=== PATIENT | female | born 1960 | race Asian ===

== ENCOUNTER 2018-10-18 08:07 | Day surgery (SDC) | payer BC, MEDICAID ==
[~2018-10-18] VITALS: Ht 162.6 cm; Wt 58.7 kg
[2018-10-18] VITALS (12 sets, daily range): BP systolic 94–101; BP diastolic 51–60; PULSE 80–87; RESP 13–18; Ht 162.6 cm; Wt 58.7 kg
--- NOTE | 2018-10-18 09:27 | HPN ---
Date/Time of Note Date/Time of Note DATE: 10/18/18 TIME: 09:27 Interval H&P Admission Note Pt. seen H&P reviewed: No system changes JARROD JOHNSON MD Oct 18, 2018 09:27
[2018-10-18] MEDS ORDERED: SOD CHLORIDE 0.9% 1,000 ML IV SCH (09:30)
[2018-10-18] MEDS ORDERED: POLYMYXIN/BACITRACIN 1L IRRIG IRR ONE (09:30)
[2018-10-18] MEDS ORDERED: CEFAZOLIN 1 GM/50 ML (PMX) 50 ML IVPB ONE (10:00)
[2018-10-18] MEDS ORDERED: MIDAZOLAM 1 MG/ML 2 ML INJ ONE (10:04)
[2018-10-18] MEDS ORDERED: LIDOCAINE 1%/EPI (1:100,000) (MDV) 20 ML ONE (10:04)
[2018-10-18] MEDS ORDERED: CEFAZOLIN 1 GM/50 ML (PMX) 0 ML IVPB ONE (10:04)
[2018-10-18] MEDS ORDERED: HEPARIN 1000 UNITS/ML 10 ML INJ ONE (10:04)
[2018-10-18] MEDS ORDERED: FENTAnyl 50 MCG/ML VIAL ONE (10:06)
--- NOTE | 2018-10-18 11:27 | RADRPT ---
Echocardiogram Report Patient Name: CLAUDIA FONSECAPatient ID: [id number] : 1960 (58y 4m)Study Date: 10/18/2018 9:12:26 AM Gender: FAccession #: [id number] Tech: [place] Location: Ref.Physician: LOPEZ KRAUSE Height(Cm): BSA: Weight(Kg): Quality: AdequateAccount #: Procedures: Echocardiographic Report: Transthoracic echocardiogram with complete 2D, M-Mode, and doppler examination. Indications: Evaluate Left Ventricular function. Measurements: 2D/M Mode Doppler Measurement Value Normal Range Measurement Value Normal Range LVIDd 2D 3.7 [ 3.8 - 5.2 ] cm AV Peak Vadim 1.5 [ 100.0 - 170.0 ] cm/sec LVIDs 2D 2.3 [ 2.2 - 3.5 ] cm AV Peak PG 9.0 [ 2.0 - 9.0 ] mmHg LVPWd 2D 0.9 [ 0.6 - 0.9 ] cm LVOT Peak Vadim 1.1 [ 70.0 - 110.0 ] cm/sec IVSd 2D 0.9 [ 0.6 - 0.9 ] cm LVOT Peak PG 5.0 [ 2.0 - 6.0 ] mmHg IVS/LVPW 2D 1.0 ratio MV E Peak Vadim 0.7 [ 60.0 - 130.0 ] cm/sec AoR Diam 2D 2.8 [ 2.3 - 3.1 ] cm MV A Peak Vadim 0.6 [ 100.0 - 120.0 ] cm/sec LA/Ao 2D 1 ratio MV E/A 1.2 [ 0.8 - 1.5 ] ratio LA Dimen 2D 2.4 [ 2.7 - 3.8 ] cm MV Decel Time 151 [ 104 - 258 ] msec Lat E` Vadim 0.1 [ 10.0 - 15.0 ] cm/sec MV E/A 1.2 [ 0.8 - 1.5 ] ratio Findings: Left Ventricle: Normal left ventricular systolic function. Normal left ventricular cavity size. Normal left ventricular wall thickness. Ejection fraction is visually estimated at 65 %. Tissue Doppler/Mitral Doppler indices are within normal limits. E/E'= 6. Normal left ventricular chamber size, wall thickness, and contractility, ejection fraction normal at 60-65%. No evidence of diastolic dysfunction with normal left atrial pressure on Doppler imaging. Right Ventricle: Normal right ventricular size. Normal right ventricular systolic function. Left Atrium: The left atrium is normal in size. Right Atrium: The right atrium is normal in size. Mitral Valve: Normal appearance and function of the mitral valve with trace physiologic regurgitation. Aortic Valve: Normal appearance of the aortic valve. No significant aortic stenosis or insufficiency. Normal trileaflet aortic valve structure. Trace to mild aortic valve regurgitation. Poorly visualized probably trileaflet aortic valve with mild aortic regurgitation by color Doppler but no significant stenosis. Tricuspid Valve: Normal appearance of the tricuspid valve. Unable to obtain RVSP due to minimal presence of tricuspid regurgitation. Pulmonic Valve: Normal pulmonic valve appearance. Pericardium: Normal pericardium with no significant pericardial effusion. Aorta: Normal aortic root. IVC: Normal size and normal respiratory collapse consistent with normal right atrial pressure. Conclusions: Normal left ventricular systolic function. Normal left ventricular cavity size. Normal left ventricular wall thickness. Ejection fraction is visually estimated at 65 %. Tissue Doppler/Mitral Doppler indices are within normal limits. E/E'= 6. Normal left ventricular chamber size, wall thickness, and contractility, ejection fraction normal at 60-65%. No evidence of diastolic dysfunction with normal left atrial pressure on Doppler imaging. The left atrium is normal in size. Normal appearance and function of the mitral valve with trace physiologic regurgitation. Normal appearance of the aortic valve. Trace to mild aortic valve regurgitation. Poorly visualized probably trileaflet aortic valve with mild aortic regurgitation by color Doppler but no significant stenosis. s. Normal appearance of the tricuspid valve. Unable to obtain RVSP due to minimal presence of tricuspid regurgitation. Normal pericardium with no significant pericardial effusion. Normal size and normal respiratory collapse consistent with normal right atrial pressure. No Vegetation, masses, or thrombi seen. Electronically Signed By: Marlo Casarez 2018-10-18 11:26:07 PST
--- NOTE | 2018-10-18 11:32 | NUR ---
0830H: Received patient, German speaking only, with son at bedside. patient scheduled for Portacath device placement by Dr. Suzanna Michele. Noted patient to have mouthsores w/ her lips swollen. Son verbalized to speak with their oncologist. 0930H: Spoke w/ METAL INSPECTOR Clinton Ferreira, from Dr. English's office and son was able to speak with him. 1020H: brought down to Interventional Radiology for portacath insertion.
[2018-10-18] MEDS ORDERED: HYDROCODONE/APAP (5/325) TAB PO PRN (12:00)
--- NOTE | 2018-10-18 13:22 | NUR ---
PACU TRANSFERRED TO [facility] IN [facility]ABLE [place]. SP RT CHEST PORT A CATH INSERTION. DSG DRY/INTACT. PAIN 0/10. REPORT GIVEN TO CARLOS WILLINGHAM. Addendum: 10/18/18 at 1331 by ROSEY NEAL RN Amended: Links added.
--- NOTE | 2018-10-18 17:14 | NUR ---
RE:DISCHARGE PATIENT DISCHARGED HOME. ALL DISCHARGE INSTRUCTIONS EXPLAINED AND PROVIDED TO PATIENT AND FAMILY. IV REMOVED SURGICAL SITE CLEAN AND DRY WITHOUT ANY BLEEDING NOTED ON THE SITE. SURGICAL SITE CLEAN AND DRY WITHOUT ANY COMPLICATIONS. PATIENT VERBALIZED READINESS FOR DISCHARGE AND UNDERSTANDING OF INSTRUCTIONS PROVIDED. STABLE TO LEAVE THE HOSPITAL.
== END 2018-10-18 14:03 | disposition home or self-care (01) ==
LOC: SDS 08:07
PROVIDERS: ATTEND Internal Medicine Hematology & Oncology
DX: C50.912 Malignant neoplasm of unspecified site of left female breast (principal)
CPT/HCPCS: 36561; 76942; 93005; 93306; C1788; J0690; J1644; J2250; J3010

== ENCOUNTER 2019-02-20 12:59 | Inpatient (IN) | payer BC ==
[~2019-02-20] VITALS: Ht 160 cm; Wt 56.6 kg
[2019-02-20 14:38] VITALS: BP 94/57; PULSE 65; RESP 19
[2019-02-20] MEDS ORDERED: POLYMYXIN/BACITRACIN 1L IRRIG ONE (15:49)
[2019-02-20] MEDS ORDERED: IODIXANOL LOCM 50 ML BTL ONE (16:15)
[2019-02-20] MEDS ORDERED: LIDOCAINE 1% (MDV) 20 ML INJ ONE (16:15)
[2019-02-20 17:38] VITALS: Ht 160 cm; Wt 56.6 kg
[2019-02-20] MEDS: CEFAZOLIN 1 GM/50 ML (PMX) 50 ML IVPB SCH ×2 (17:40→21:28)
[2019-02-20] MEDS: SOD CHLORIDE 0.9% 1,000 ML IV SCH (17:41)
[2019-02-20 17:47] VITALS: BP 111/57; PULSE 68; RESP 18
[2019-02-20 19:20] VITALS: BP 99/56; PULSE 60; RESP 18
[2019-02-20] MEDS ORDERED: ACETAMINOPHEN 325 MG TAB PO PRN (20:00)
[2019-02-20] MEDS: HYDROCODONE/APAP (5/325) TAB PO PRN (20:12)
--- NOTE | 2019-02-20 20:51 | HP ---
Date/Time of Note Date/Time of Note DATE: 02/20/19 TIME: 20:40 Assessment/Plan VTE Prophylaxis SCD applied (from Nsg): Yes Pharmacological prophylaxis: NA/contraindicated Pharm contraindication: surgical contra Lines/Catheters IV Catheter Type (from Nrsg): Saline Lock Assessment/Plan Assessment/Plan -Permacath exposure, status post removal by interventional radiology. Continue Tylenol and [place] PRN for pain Zofran as needed for nausea. Continue IV fluids and postoperative antibiotic. -Locally advanced left breast cancer. Status post chemotherapy. Dr. Jack is following in general surgery consultation. Further recommendations based on clinical course. Plan of care discussed with Dr. Jovel. Result Diagram: 02/20/19 1508 02/20/19 1508 Results 24hrs Laboratory Tests Test 02/20/19 15:08 White Blood Count 1.4 L Red Blood Count 3.37 L Hemoglobin 10.1 L Hematocrit 31.1 L Mean Corpuscular Volume 92.3 Mean Corpuscular Hemoglobin 30.0 Mean Corpuscular Hemoglobin Concent 32.5 Red Cell Distribution Width 14.2 Platelet Count 147 Mean Platelet Volume 8.7 Immature Granulocytes % 0.700 H Neutrophils % Segmented Neutrophils % (Manual) 43 Band Neutrophils % (Manual) 2 Lymphocytes % Lymphocytes % (Manual) 44 Monocytes % Monocytes % (Manual) 9 Eosinophils % Eosinophils % (Manual) 2 Basophils % Nucleated Red Blood Cells % 1 H Immature Granulocytes # 0.010 Neutrophils # Neutrophils # (Manual) 0.6 L Band Neutrophils # 0.0 Lymphocytes (Manual) 0.6 L Lymphocytes # Monocytes # Monocytes # (Manual) 0.1 L Eosinophils # Basophils # Nucleated Red Blood Cells # Platelet Estimate NORMAL Giant Platelets 1 H Polychromasia 1+ Anisocytosis 1+ Macrocytosis 1+ Prothrombin Time 12.5 Prothrombin Time Ratio 1.0 INR International Normalized Ratio 0.92 Sodium Level 143 Potassium Level 4.0 Chloride Level 108 Carbon Dioxide Level 29 Anion Gap 6 Blood Urea Nitrogen 8 Creatinine 0.34 L Est Glomerular Filtrat Rate mL/min > 60 Glucose Level 80 Calcium Level 8.9 HPI/ROS Admit Date/Time Admit Date/Time Feb 20, 2019 at 13:13 Hx of Present Illness The patient is a 58-year-old Armenian female who was diagnosed with locally advanced left breast cancer in August 2018. Patient underwent permacath pl acement on the right side in October 2018. Patient underwent chemotherapy with good response. Patient was following with Dr. Dempsey in oncology consultation. Patient was seen in Dr. Pleitez's office and noted permacath exposure above skin surface. Patient was brought to the hospital today and underwent removal of right chest permacath by radiology. Patient is seen is seen in medical surgical floor. Patient is awake, alert, complains of minor right surgical site pain, denies any nausea vomiting, denies any chest pain denies shortness of breath. ROS 12 point review of system is negative except for what mentioned in HPI PMH/Family/Social Past Medical History per HPI Medications Current Medications Sodium Chloride 1,000 ml @ 100 mls/hr Q10H IV Last administered on 02/20/19at 17:41; Admin Dose 100 MLS/HR; Start 02/20/19 at 15:00 Cefazolin Sodium 50 ml @ 100 mls/hr Q8 IVPB Last administered on 02/20/19at 17:40; Admin Dose 100 MLS/HR; Start 02/20/19 at 15:00 Acetaminophen/ Hydrocodone Bitart ([place] (5/325)) 1 tab Q6H PRN PO MODERATE PAIN LEVEL 4-6 Last administered on 02/20/19at 20:12; Admin Dose 1 TAB; Start 02/20/19 at 20:00 Acetaminophen (Tylenol Tab) 650 mg Q6H PRN PO MILD PAIN(1-3)OR ELEVATED TEMP; Start 02/20/19 at 20:00 Coded Allergies: carboplatin (Verified Allergy, Unknown, 10/18/18) docetaxel (Verified Allergy, Unknown, 10/18/18) pertuzumab (Verified Allergy, Unknown, 10/18/18) trastuzumab (Verified Allergy, Unknown, 10/18/18) Past Surgical History Past Surgical Hx: no surgical history Family History Significant Family History: no pertinent family hx Social History Alcohol Use: none Smoking Status: Never smoker Drug Use: none Exam/Review of Systems Vital Signs Vitals Vital Signs Date Temp Pulse Resp B/P (MAP) Pulse Ox O2 O2 Flow FiO2 Time Delivery Rate 02/20/19 97.6 60 18 99/56 (70) 97 19:20 02/20/19 Room Air 17:47 Exam Constitutional: alert, oriented Head: normocephalic Neck: supple Respiratory: clear to auscultation Cardiovascular: nl pulses Gastrointestinal: soft, non-tender Musculoskeletal: nl extremities to inspection 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: nl mental status Skin: other (Right upper chest surgical dressing) CAM GARCIA Feb 20, 2019 20:50
[2019-02-20] MEDS ORDERED: ZOLPIDEM 5 MG TAB PO PRN (21:00)
[2019-02-20] MEDS ORDERED: DOCUSATE SODIUM 100 MG CAP PO PRN (21:00)
[2019-02-20] MEDS ORDERED: ONDANSETRON 4 MG INJ IV PRN (21:00)
[2019-02-20] MEDS: FAMOTIDINE 20 MG TAB PO SCH (21:28)
--- NOTE | 2019-02-20 22:07 | RADRPT ---
PROCEDURE: Right chest port removal. CLINICAL INDICATION: Right chest port infected. TECHNIQUE: Informed consent was obtained. The procedure, risks, benefits, complications and alternatives were e xplained to the patient. Risks including bleeding and infection were explained. The patient understo od and was willing to proceed. A procedural pause was performed. The patient's name, date of , and procedure to be performed we re verified. The central line was removed with all elements of maximal sterile barrier technique. All of the follo wing were used: head covering, facial mask, sterile gown, sterile gloves, a large sterile sheet, hand hygiene, and 2% chlorhexidine for cutaneous antisepsis. The right anterior chest wall prepped and draped. One percent lidocaine was used as local anesthesia at the site of the chest port. The indwelling port was infected with skin opening. Additional incisio n was made at the margin of the opening utilizing a 15 blade scalpel. Utilizing sharp and blunt disse ction the pocket at the site of the port was reopened. The port and catheter were removed with fluoro scopic guidance. The pocket was irrigated by PB solution. The pocket were packed by Xeroform. The mar gins of the pocket was closed with 3-0 interrupted suture. A dressing was applied. Specimens: None. Blood loss: 5 ml. Complications: None. Anesthesia: Loca Graft/Implant: None. COMPARISON: None. FINDINGS: Final images demonstrate the right chest port to have been removed. 0.1 minutes of fluoroscopy time w as used. 2 images of the chest were obtained with image intensifier. IMPRESSION: Successful removal of infected right chest port. The port pocket was irrigated by PB solution and pac ked by Xeroform. The patient need to be reevaluated in 4 - 5 days. RPTAT: QQ Physician Fara Date Time Electronically viewed and signed by Physician Fara on 02/20/2019 22:07 rV/
[2019-02-20 23:34] VITALS: BP 92/52; PULSE 65; RESP 18
[2019-02-21] MEDS: SOD CHLORIDE 0.9% 1,000 ML IV SCH ×3 (01:00→17:11)
--- NOTE | 2019-02-21 04:21 | PN ---
Date/Time of Note Date/Time of Note DATE: 02/21/19 TIME: 04:21 Assessment/Plan VTE Prophylaxis Risk score (from Ns)>0 risk: 2 [place] [facility] [place] SCD contraindicated: other Pharmacological prophylaxis: other Pharm contraindication: other Lines[facility]ters [facility] Assessment/Plan Assessment/Plan -Permacath exposure - status post removal by interventional radiology. Continue Tylenol and [place] PRN for pain Zofran as needed for nausea. Continue IV fluids and postoperative antibiotic. -Locally advanced left breast cancer. Status post chemotherapy. - Dr. Jack is following in general surgery consultation. - Oncology /Hematology consultation will be appreciated - Neutropenic precautions - Oncology /Hematology consultation will be appreciated - I D consult appreciated - neutropenic precautions Further recommendations based on clinical course. Plan of care discussed with Dr. Jovel. Result Diagram: 02/20/19 1508 02/20/19 1508 Results 24hrs Laboratory Tests Test 02/20/19 15:08 White Blood Count 1.4 L Red Blood Count 3.37 L Hemoglobin 10.1 L Hematocrit 31.1 L Mean Corpuscular Volume 92.3 Mean Corpuscular Hemoglobin 30.0 Mean Corpuscular Hemoglobin Concent 32.5 Red Cell Distribution Width 14.2 Platelet Count 147 Mean Platelet Volume 8.7 Immature Granulocytes % 0.700 H Neutrophils % Segmented Neutrophils % (Manual) 43 Band Neutrophils % (Manual) 2 Lymphocytes % Lymphocytes % (Manual) 44 Monocytes % Monocytes % (Manual) 9 Eosinophils % Eosinophils % (Manual) 2 Basophils % Nucleated Red Blood Cells % 1 H Immature Granulocytes # 0.010 Neutrophils # Neutrophils # (Manual) 0.6 L Band Neutrophils # 0.0 Lymphocytes (Manual) 0.6 L Lymphocytes # Monocytes # Monocytes # (Manual) 0.1 L Eosinophils # Basophils # Nucleated Red Blood Cells # Platelet Estimate NORMAL Giant Platelets 1 H Polychromasia 1+ Anisocytosis 1+ Macrocytosis 1+ Prothrombin Time 12.5 Prothrombin Time Ratio 1.0 INR International Normalized Ratio 0.92 Sodium Level 143 Potassium Level 4.0 Chloride Level 108 Carbon Dioxide Level 29 Anion Gap 6 Blood Urea Nitrogen 8 Creatinine 0.34 L Est Glomerular Filtrat Rate mL/min > 60 Glucose Level 80 Calcium Level 8.9 Exam/Review of Systems Exam Vitals Vital Signs Date Temp Pulse Resp B/P (MAP) Pulse Ox O2 O2 Flow FiO2 Time Delivery Rate 02/20/19 98.0 65 18 92/52 (65) 97 23:34 02/20/19 Room Air 17:47 Intake and Output 02/20/19 02/20/19 02/21/19 1515:00 23:00 07:00 IntakeIntake Total 50 ml BalanceBalance 50 ml Constitutional: alert, well developed Psych: nl mood/affect Head: normocephalic Eyes: nl lids, nl sclera ENMT: nl external ears & nose Neck: non-tender Respiratory: clear to auscultation Cardiovascular: nl pulses, other (s1s2) Gastrointestinal: soft, non-tender Musculoskeletal: nl extremities to inspection Extremities: normal pulses 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: nl mental status, other (alert/reponsive) Skin: nl turgor Results Results 24hrs Laboratory Tests Test 02/20/19 15:08 White Blood Count 1.4 L Red Blood Count 3.37 L Hemoglobin 10.1 L Hematocrit 31.1 L Mean Corpuscular Volume 92.3 Mean Corpuscular Hemoglobin 30.0 Mean Corpuscular Hemoglobin Concent 32.5 Red Cell Distribution Width 14.2 Platelet Count 147 Mean Platelet Volume 8.7 Immature Granulocytes % 0.700 H Neutrophils % Segmented Neutrophils % (Manual) 43 Band Neutrophils % (Manual) 2 Lymphocytes % Lymphocytes % (Manual) 44 Monocytes % Monocytes % (Manual) 9 Eosinophils % Eosinophils % (Manual) 2 Basophils % Nucleated Red Blood Cells % 1 H Immature Granulocytes # 0.010 Neutrophils # Neutrophils # (Manual) 0.6 L Band Neutrophils # 0.0 Lymphocytes (Manual) 0.6 L Lymphocytes # Monocytes # Monocytes # (Manual) 0.1 L Eosinophils # Basophils # Nucleated Red Blood Cells # Platelet Estimate NORMAL Giant Platelets 1 H Polychromasia 1+ Anisocytosis 1+ Macrocytosis 1+ Prothrombin Time 12.5 Prothrombin Time Ratio 1.0 INR International Normalized Ratio 0.92 Sodium Level 143 Potassium Level 4.0 Chloride Level 108 Carbon Dioxide Level 29 Anion Gap 6 Blood Urea Nitrogen 8 Creatinine 0.34 L Est Glomerular Filtrat Rate mL/min > 60 Glucose Level 80 Calcium Level 8.9 Medications Medication Current Medications Sodium Chloride 1,000 ml @ 100 mls/hr Q10H IV Last administered on 02/20/19at 17:41; Admin Dose 100 MLS/HR; Start 02/20/19 at 15:00 Cefazolin Sodium 50 ml @ 100 mls/hr Q8 IVPB Last administered on 02/20/19at 21:28; Admin Dose 100 MLS/HR; Start 02/20/19 at 15:00 Acetaminophen/ Hydrocodone Bitart ([place] (5/325)) 1 tab Q6H PRN PO MODERATE PAIN LEVEL 4-6 Last administered on 02/20/19at 20:12; Admin Dose 1 TAB; Start 02/20/19 at 20:00 Acetaminophen (Tylenol Tab) 650 mg Q6H PRN PO MILD PAIN(1-3)OR ELEVATED TEMP; Start 02/20/19 at 20:00 Ondansetron HCl (Zofran Inj) 4 mg Q6H PRN IV NAUSEA/VOMITING; Start 02/20/19 at 21:00 Docusate Sodium (Colace) 100 mg Q12H PRN PO .CONSTIPATION; Start 02/20/19 at 21:00 Zolpidem Tartrate (Ambien) 5 mg QHS PRN PO .INSOMNIA; Start 02/20/19 at 21:00 Famotidine (Pepcid) 20 mg Q12 PO Last administered on 02/20/19at 21:28; Admin Dose 20 MG; Start 02/20/19 at 21:00 GURU LAMB Feb 21, 2019 04:21
[2019-02-21] MEDS: CEFAZOLIN 1 GM/50 ML (PMX) 50 ML IVPB SCH ×3 (06:33→22:15)
[2019-02-21] MEDS: HYDROCODONE/APAP (5/325) TAB PO PRN (06:34)
[2019-02-21 08:48] VITALS: BP 129/52; PULSE 65; RESP 18
[2019-02-21] MEDS: FAMOTIDINE 20 MG TAB PO SCH ×2 (09:04→20:09)
[2019-02-21] MEDS ORDERED: POTASSIUM CHLORIDE (SR) 20 MEQ TAB PO STA (09:49)
[2019-02-21 20:14] VITALS: BP 103/60; PULSE 69; RESP 18
[2019-02-22 03:00] VITALS: BP 93/52; PULSE 60; RESP 18
[2019-02-22] MEDS: SOD CHLORIDE 0.9% 1,000 ML IV SCH ×2 (05:45→18:49)
[2019-02-22] MEDS: CEFAZOLIN 1 GM/50 ML (PMX) 50 ML IVPB SCH (05:51)
[2019-02-22 07:43] VITALS: BP 106/53; PULSE 63; RESP 18
[2019-02-22] MEDS: FAMOTIDINE 20 MG TAB PO SCH ×2 (08:37→21:46)
[2019-02-22] MEDS ORDERED: VANCOMYCIN IV PER PHARMACY XX SCH (09:30)
--- NOTE | 2019-02-22 09:38 | CONS ---
Assessment/Plan Assessment/Plan Hospital Course (Demo Recall) 1. possible infected portacath site s/p removal 2. Breast CA on chemo 3. neutropenic 4. immunocompromised 5. bandemia R: empiric vanco/cefepime wound cx lactic acid bcxs procalcitonin to help limit abx exposure if possible hiv screen mrsa screen Will be in shortly for further evaluation with rest of team bijan. ty Consultation Date/Type/Reason Admit Date/Time Feb 20, 2019 at 13:13 Date of Consultation: Feb 22, 2019 Type of Consult ID Reason for Consultation INFECTED PORTACATH SITE Requesting Provider: GURU LAMB Date/Time of Note DATE: 02/22/19 TIME: 09:33 Hx of Present Illness 58-year-old Hebrew female with tragic hx of locally advanced left breast cancer on chemo since approx 11.05. On a surgical f/u evaluation it was noted that permcath was exposed. She was admitted and is s/p permcath removal. She is noted to have neutropenia and bandemia. Past Medical History Medications Current Medications Sodium Chloride 1,000 ml @ 100 mls/hr Q10H IV Last administered on 02/22/19at 05:45; Admin Dose 100 MLS/HR; Start 02/20/19 at 15:00 Acetaminophen/ Hydrocodone Bitart ([place] (5/325)) 1 tab Q6H PRN PO MODERATE PAIN LEVEL 4-6 Last administered on 02/21/19at 06:34; Admin Dose 1 TAB; Start 02/20/19 at 20:00 Acetaminophen (Tylenol Tab) 650 mg Q6H PRN PO MILD PAIN(1-3)OR ELEVATED TEMP; Start 02/20/19 at 20:00 Ondansetron HCl (Zofran Inj) 4 mg Q6H PRN IV NAUSEA/VOMITING; Start 02/20/19 at 21:00 Docusate Sodium (Colace) 100 mg Q12H PRN PO .CONSTIPATION; Start 02/20/19 at 21:00 Zolpidem Tartrate (Ambien) 5 mg QHS PRN PO .INSOMNIA; Start 02/20/19 at 21:00 Famotidine (Pepcid) 20 mg Q12 PO Last administered on 02/22/19at 08:37; Admin Dose 20 MG; Start 02/20/19 at 21:00 Vancomycin HCl (Vanco Iv Per Pharmacy) VANCOMYCIN PER PHARMACY PER PROTOCOL XX ; Start 02/22/19 at 09:30; Status UNV Cefepime HCl 50 ml @ 100 mls/hr Q12 IVPB ; Start 02/22/19 at 09:30; Status UNV Allergies: Coded Allergies: carboplatin (Verified Allergy, Unknown, 10/18/18) docetaxel (Verified Allergy, Unknown, 10/18/18) pertuzumab (Verified Allergy, Unknown, 10/18/18) trastuzumab (Verified Allergy, Unknown, 10/18/18) Past Surgical History Past Surgical Hx: no surgical history Social History Alcohol Use: none Smoking Status: Never smoker Drug Use: none Exam/Review of Systems Exam Vitals Vital Signs Date Temp Pulse Resp B/P (MAP) Pulse Ox O2 O2 Flow FiO2 Time Delivery Rate 02/22/19 97.6 63 18 106/53 97 07:43 (70) 02/21/19 Room Air 08:48 Intake and Output 02/21/19 02/21/19 02/22/19 1515:00 23:00 07:00 IntakeIntake Total 100 ml 1335 ml 1020 ml BalanceBalance 100 ml 1335 ml 1020 ml Results Result Diagram: 02/22/19 0455 02/22/19 0455 Results 24hrs Laboratory Tests Test 02/22/19 04:55 White Blood Count 2.1 #L Red Blood Count 3.04 L Hemoglobin 9.3 L Hematocrit 28.1 L Mean Corpuscular Volume 92.4 Mean Corpuscular Hemoglobin 30.6 Mean Corpuscular Hemoglobin Concent 33.1 Red Cell Distribution Width 14.1 Platelet Count 144 Mean Platelet Volume 9.9 Immature Granulocytes % 0.000 L Neutrophils % Segmented Neutrophils % (Manual) 35 L Band Neutrophils % (Manual) 6 H Lymphocytes % Lymphocytes % (Manual) 42 Reactive Lymphocytes % (Manual) 8 H Monocytes % Monocytes % (Manual) 8 Eosinophils % Basophils % Basophils % (Manual) 1 Nucleated Red Blood Cells % 0.0 Immature Granulocytes # 0.000 Neutrophils # Neutrophils # (Manual) 0.7 L Band Neutrophils # 0.1 Lymphocytes (Manual) 0.8 Lymphocytes # Reactive Lymphocytes # 0.1 H Monocytes # Monocytes # (Manual) 0.1 L Eosinophils # Basophils # Basophils # (Manual) 0.0 Nucleated Red Blood Cells # Platelet Estimate NORMAL Poikilocytosis 1+ Anisocytosis 1+ Sodium Level 144 Potassium Level 3.9 Chloride Level 113 H Carbon Dioxide Level 24 Anion Gap 7 Blood Urea Nitrogen 8 Creatinine 0.33 L Est Glomerular Filtrat Rate mL/min > 60 Glucose Level 94 Calcium Level 8.7 Medications Medication Current Medications Sodium Chloride 1,000 ml @ 100 mls/hr Q10H IV Last administered on 02/22/19at 05:45; Admin Dose 100 MLS/HR; Start 02/20/19 at 15:00 Acetaminophen/ Hydrocodone Bitart ([place] (5/325)) 1 tab Q6H PRN PO MODERATE PAIN LEVEL 4-6 Last administered on 02/21/19at 06:34; Admin Dose 1 TAB; Start 02/20/19 at 20:00 Acetaminophen (Tylenol Tab) 650 mg Q6H PRN PO MILD PAIN(1-3)OR ELEVATED TEMP; Start 02/20/19 at 20:00 Ondansetron HCl (Zofran Inj) 4 mg Q6H PRN IV NAUSEA/VOMITING; Start 02/20/19 at 21:00 Docusate Sodium (Colace) 100 mg Q12H PRN PO .CONSTIPATION; Start 02/20/19 at 21:00 Zolpidem Tartrate (Ambien) 5 mg QHS PRN PO .INSOMNIA; Start 02/20/19 at 21:00 Famotidine (Pepcid) 20 mg Q12 PO Last administered on 02/22/19at 08:37; Admin Dose 20 MG; Start 02/20/19 at 21:00 Vancomycin HCl (Vanco Iv Per Pharmacy) VANCOMYCIN PER PHARMACY PER PROTOCOL XX ; Start 02/22/19 at 09:30; Status UNV Cefepime HCl 50 ml @ 100 mls/hr Q12 IVPB ; Start 02/22/19 at 09:30; Status UNV CON HERNANDEZ MD Feb 22, 2019 09:38
--- NOTE | 2019-02-22 10:21 | PN ---
Date/Time of Note Date/Time of Note DATE: 02/22/19 TIME: 10:20 Assessment/Plan VTE Prophylaxis Risk score (from Ns)>0 risk: 4 [place] [facility] [place] SCD contraindicated: other Pharmacological prophylaxis: other Pharm contraindication: other Lines/Catheters IV Catheter Type (from Nrsg): [place] Lock Assessment/Plan Assessment/Plan -Permacath exposure - status post removal by interventional radiology. - Continue Tylenol and [place] PRN for pain Zofran as needed for nausea. - Continue IV fluids and postoperative antibiotic. -Locally advanced left breast cancer. Status post chemotherapy. - Dr. Jack is following in general surgery consultation. - Oncology /Hematology consultation will be appreciated -Leukopenia - Neutropenic precautions - Oncology /Hematology consultation will be appreciated - I D consult appreciated - neutropenic precautions Further recommendations based on clinical course. Plan of care discussed with Dr. Jovel. Result Diagram: 02/22/19 0455 02/22/19 0455 Results 24hrs Laboratory Tests Test 02/22/19 04:55 White Blood Count 2.1 #L Red Blood Count 3.04 L Hemoglobin 9.3 L Hematocrit 28.1 L Mean Corpuscular Volume 92.4 Mean Corpuscular Hemoglobin 30.6 Mean Corpuscular Hemoglobin Concent 33.1 Red Cell Distribution Width 14.1 Platelet Count 144 Mean Platelet Volume 9.9 Immature Granulocytes % 0.000 L Neutrophils % Segmented Neutrophils % (Manual) 35 L Band Neutrophils % (Manual) 6 H Lymphocytes % Lymphocytes % (Manual) 42 Reactive Lymphocytes % (Manual) 8 H Monocytes % Monocytes % (Manual) 8 Eosinophils % Basophils % Basophils % (Manual) 1 Nucleated Red Blood Cells % 0.0 Immature Granulocytes # 0.000 Neutrophils # Neutrophils # (Manual) 0.7 L Band Neutrophils # 0.1 Lymphocytes (Manual) 0.8 Lymphocytes # Reactive Lymphocytes # 0.1 H Monocytes # Monocytes # (Manual) 0.1 L Eosinophils # Basophils # Basophils # (Manual) 0.0 Nucleated Red Blood Cells # Platelet Estimate NORMAL Poikilocytosis 1+ Anisocytosis 1+ Sodium Level 144 Potassium Level 3.9 Chloride Level 113 H Carbon Dioxide Level 24 Anion Gap 7 Blood Urea Nitrogen 8 Creatinine 0.33 L Est Glomerular Filtrat Rate mL/min > 60 Glucose Level 94 Calcium Level 8.7 Exam/Review of Systems Exam Vitals Vital Signs Date Temp Pulse Resp B/P (MAP) Pulse Ox O2 O2 Flow FiO2 Time Delivery Rate 02/22/19 97.6 63 18 106/53 97 07:43 (70) 02/21/19 Room Air 08:48 Intake and Output 02/21/19 02/21/19 02/22/19 1515:00 23:00 07:00 IntakeIntake Total 100 ml 1335 ml 1020 ml BalanceBalance 100 ml 1335 ml 1020 ml Constitutional: alert, well developed Psych: nl mood/affect Eyes: nl lids, nl sclera ENMT: nl external ears & nose Neck: supple Respiratory: clear to auscultation Cardiovascular: nl pulses, other (s1s2) Gastrointestinal: soft, non-tender Musculoskeletal: nl extremities to inspection 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: nl speech, other (alert/reponsive) Results Results 24hrs Laboratory Tests Test 02/22/19 04:55 White Blood Count 2.1 #L Red Blood Count 3.04 L Hemoglobin 9.3 L Hematocrit 28.1 L Mean Corpuscular Volume 92.4 Mean Corpuscular Hemoglobin 30.6 Mean Corpuscular Hemoglobin Concent 33.1 Red Cell Distribution Width 14.1 Platelet Count 144 Mean Platelet Volume 9.9 Immature Granulocytes % 0.000 L Neutrophils % Segmented Neutrophils % (Manual) 35 L Band Neutrophils % (Manual) 6 H Lymphocytes % Lymphocytes % (Manual) 42 Reactive Lymphocytes % (Manual) 8 H Monocytes % Monocytes % (Manual) 8 Eosinophils % Basophils % Basophils % (Manual) 1 Nucleated Red Blood Cells % 0.0 Immature Granulocytes # 0.000 Neutrophils # Neutrophils # (Manual) 0.7 L Band Neutrophils # 0.1 Lymphocytes (Manual) 0.8 Lymphocytes # Reactive Lymphocytes # 0.1 H Monocytes # Monocytes # (Manual) 0.1 L Eosinophils # Basophils # Basophils # (Manual) 0.0 Nucleated Red Blood Cells # Platelet Estimate NORMAL Poikilocytosis 1+ Anisocytosis 1+ Sodium Level 144 Potassium Level 3.9 Chloride Level 113 H Carbon Dioxide Level 24 Anion Gap 7 Blood Urea Nitrogen 8 Creatinine 0.33 L Est Glomerular Filtrat Rate mL/min > 60 Glucose Level 94 Calcium Level 8.7 Medications Medication Current Medications Sodium Chloride 1,000 ml @ 100 mls/hr Q10H IV Last administered on 02/22/19at 05:45; Admin Dose 100 MLS/HR; Start 02/20/19 at 15:00 Acetaminophen/ Hydrocodone Bitart ([place] (5/325)) 1 tab Q6H PRN PO MODERATE PAIN LEVEL 4-6 Last administered on 02/21/19at 06:34; Admin Dose 1 TAB; Start 02/20/19 at 20:00 Acetaminophen (Tylenol Tab) 650 mg Q6H PRN PO MILD PAIN(1-3)OR ELEVATED TEMP; Start 02/20/19 at 20:00 Ondansetron HCl (Zofran Inj) 4 mg Q6H PRN IV NAUSEA/VOMITING; Start 02/20/19 at 21:00 Docusate Sodium (Colace) 100 mg Q12H PRN PO .CONSTIPATION; Start 02/20/19 at 21:00 Zolpidem Tartrate (Ambien) 5 mg QHS PRN PO .INSOMNIA; Start 02/20/19 at 21:00 Famotidine (Pepcid) 20 mg Q12 PO Last administered on 02/22/19at 08:37; Admin Dose 20 MG; Start 02/20/19 at 21:00 Vancomycin HCl (Vanco Iv Per Pharmacy) VANCOMYCIN PER PHARMACY PER PROTOCOL XX ; Start 02/22/19 at 09:30 Cefepime HCl 50 ml @ 100 mls/hr Q12 IVPB ; Start 02/22/19 at 10:00 Vancomycin HCl 250 ml @ 125 mls/hr ONCE IVPB ; Start 02/22/19 at 11:00; Stop 02/22/19 at 12:59 GURU LAMB Feb 22, 2019 10:20
[2019-02-22] MEDS ORDERED: VANCOMYCIN 1 GM 250 ML IVPB SCH (11:00)
[2019-02-22] MEDS: CEFEPIME 1GM/50 ML (PMX) 50 ML IVPB SCH ×2 (11:13→21:46)
--- NOTE | 2019-02-22 16:51 | CONS ---
DATE OF ADMISSION: 02/21/2019 DATE OF CONSULTATION: 02/22/2019 CONSULTATION REQUESTED PHYSICIAN: Dr. Varner's service. REASON FOR CONSULTATION: For followup and evaluation of the open wound in the anterior chest wall, site of removal of dehisce and possibly infected Port-A-Cath, and also evaluation for the cancer of the left breast. Thank you, Dr. Varner, for consultation. HISTORY OF PRESENT ILLNESS: As you know, this is a 58-year-old [place] female, who in August 2018 was diagnosed as a locally advanced cancer of the left breast. She was found to be a candidate for neoadjuvant chemotherapy, so in October 2018, a Port-A-Cath was placed by Dr. Michele in radiology department for the patient on the right side and then chemotherapy started by Dr. English's service for this patient. The patient states that about a month ago she noticed some redness over the site of the Port-A-Cath, which gradually got worse. Eventually a few days before admission, it was noted that the wound has an scab and the scab fell off. Eventually, the port was exposed. The patient referred to Dr. Jack' office immediately and was seen there on 02/20/2019 and it was found that the port tubing was exposed due to wound skin dehiscence. Therefore, the patient was admitted as an emergency to the floor, and later on the afternoon, was seen by the radiologist and he remove the exposed Port-A-Cath and dressing was applied over there. Also, the patient has been seen by infectious disease contract consultant and empirical antibiotic has been started for the patient. PAST MEDICAL HISTORY: Negative except the history of present illness. PAST SURGICAL HISTORY: Negative. REVIEW OF SYSTEMS: Unremarkable. ALLERGIES: THE PATIENT IS ALLERGIC TO: 1. CARBOPLATIN. 2. DOCETAXEL. 3. PERTUZUMAB. 4. TRASTUZUMAB. SOCIAL HISTORY: Negative for alcohol consumption and also negative for smoking. PHYSICAL EXAMINATION GENERAL: Today, 02/22/2019, the patient is seen and examined, is awake, alert, oriented. VITAL SIGNS: Temperature maximum 98, heart rate 63, respirations 18, blood pressure 106/53, saturation 97% room air. HEAD AND NECK: Within normal limits. CHEST WALL: There is dressing over the right upper anterior chest wall below the clavicle. The dressing was removed. There is a Xeroform dressing, which has been packed under the skin in the cavity where the port of the Port-A-Cath has been removed. Gently, this was removed because it has been there for almost 48 hours. There was no bleeding. The area was prepped with Betadine and a Betadine soaked a small sponge, partially was pushed under the open skin, and the cavity of the pocket of the port and another dry sponges applied on that and then Tegaderm dressing was applied. This dressing is going to be changed daily with Betadine soaked sponge. HEART: Regular. LUNGS: Clear. Left breast was examined. ABDOMEN: I have not seen and examined the patient before, so I do not know exactly how big the exact size of the tumor was, but at the periareolar area, there is some evidence of firm tissue. It could be the remnant of the shrunken tumor. Left axillary, I could not feel any lymph nodes. Abdomen is soft. EXTREMITIES: Lower extremity negative. LABORATORY DATA: Today, sodium and potassium normal. BUN and creatinine normal. Lactate is 2.1, which is slightly elevated. Hematology since admission and including today, the patient has leukopenia, which was 1.4, and today is 2.4 with differential 43 segmented neutrophils and today is 35 and today has 6 bands and 42 lymphocytes. Platelet count is 144. Hemoglobin is 9.3, hematocrit is 28.1. On admission, it was 10.1 and 31.1. IMPRESSION: 1. A 58-year-old female, status post locally advanced left breast cancer. 2. Status post neoadjuvant chemotherapy with good response. 3. Status post removal of an exposed Port-A-Cath from right chest wall area 2 days ago. Status post open wound at the site of the exposed and removed the Port-A-Cath considering that most probably this wound was contaminated. Therefore, they have preferred to not close it, which is logical. PLAN: 1. Continue antibiotics per infectious disease recommendation and precaution for neutropenia. 2. Continue dressing change daily with application of Betadine soaked and sponge over the wound. I will continue to follow from a surgical point of view. Dictated By: MIREILLE CHAVEZ MD PS/NTS Conf#: [id number] DID#: [id number] CC: TRACY VARNER MD; MAICO JACK MD;*EndCC* [facility]
[2019-02-22 19:15] VITALS: BP 104/53; PULSE 68; RESP 18
[2019-02-23] MEDS ORDERED: VANCOMYCIN 500 MG (PMX) 100 ML IVPB SCH
[2019-02-23] MEDS: VANCOMYCIN 500 MG (PMX) 100 ML IVPB SCH ×2 (00:20→14:17)
[2019-02-23 02:40] VITALS: BP 100/57; PULSE 57; RESP 18
[2019-02-23] MEDS: SOD CHLORIDE 0.9% 1,000 ML IV SCH ×2 (04:51→14:21)
[2019-02-23 07:37] VITALS: BP 97/55; PULSE 68; RESP 17
--- NOTE | 2019-02-23 08:07 | PN ---
Date/Time of Note Date/Time of Note DATE: 02/23/19 TIME: 08:07 Assessment/Plan VTE Prophylaxis Risk score (from Nsg)>0 risk: 4 SCD applied (from Nsg): Yes Lines/Catheters IV Catheter Type (from Nrsg): Peripheral IV Urinary Cath still in place: No Assessment/Plan Assessment/Plan -Permacath exposure - status post removal by interventional radiology. Continue Tylenol and [place] PRN for pain Zofran as needed for nausea. Continue IV fluids and postoperative antibiotic. -Locally advanced left breast cancer. Status post chemotherapy. - Dr. Jack is following in general surgery consultation. - Oncology /Hematology consultation will be appreciated - Neutropenic precautions - Oncology /Hematology consultation will be appreciated - I D consult appreciated - neutropenic precautions Further recommendations based on clinical course. Plan of care discussed with Dr. Jovel. Result Diagram: 02/23/19 0421 02/23/19 0421 Results 24hrs Laboratory Tests Test 02/22/19 10:01 02/23/19 04:21 Lactic Acid Level 2.1 *H Procalcitonin 0.03 HIV (1&2) Antibody NEGATIVE White Blood Count 2.0 L Red Blood Count 2.95 L Hemoglobin 9.1 L Hematocrit 27.7 L Mean Corpuscular Volume 93.9 Mean Corpuscular Hemoglobin 30.8 Mean Corpuscular Hemoglobin Concent 32.9 Red Cell Distribution Width 14.0 Platelet Count 138 L Mean Platelet Volume 9.8 Immature Granulocytes % 0.000 L Neutrophils % 38.7 L Lymphocytes % 49.2 Monocytes % 11.1 H Eosinophils % 0.5 Basophils % 0.5 Nucleated Red Blood Cells % 0.0 Immature Granulocytes # 0.000 Neutrophils # 0.8 L Lymphocytes # 1.0 Monocytes # 0.2 L Eosinophils # 0.0 Basophils # 0.0 Nucleated Red Blood Cells # 0.0 Sodium Level 142 Potassium Level 3.9 Chloride Level 114 H Carbon Dioxide Level 24 Anion Gap 4 L Blood Urea Nitrogen 6 L Creatinine 0.33 L Est Glomerular Filtrat Rate mL/min > 60 Glucose Level 96 Calcium Level 8.6 Magnesium Level 1.9 Exam/Review of Systems Exam Vitals Vital Signs Date Temp Pulse Resp B/P (MAP) Pulse Ox O2 O2 Flow FiO2 Time Delivery Rate 02/23/19 97.6 68 17 97/55 (69) 98 07:37 02/21/19 Room Air 08:48 Intake and Output 02/22/19 02/22/19 02/23/19 1515:00 23:00 07:00 IntakeIntake Total 300 ml 2330 ml 1560 ml OutputOutput Total 500 ml 300 ml BalanceBalance 300 ml 1830 ml 1260 ml Results Results 24hrs Laboratory Tests Test 02/22/19 10:01 02/23/19 04:21 Lactic Acid Level 2.1 *H Procalcitonin 0.03 HIV (1&2) Antibody NEGATIVE White Blood Count 2.0 L Red Blood Count 2.95 L Hemoglobin 9.1 L Hematocrit 27.7 L Mean Corpuscular Volume 93.9 Mean Corpuscular Hemoglobin 30.8 Mean Corpuscular Hemoglobin Concent 32.9 Red Cell Distribution Width 14.0 Platelet Count 138 L Mean Platelet Volume 9.8 Immature Granulocytes % 0.000 L Neutrophils % 38.7 L Lymphocytes % 49.2 Monocytes % 11.1 H Eosinophils % 0.5 Basophils % 0.5 Nucleated Red Blood Cells % 0.0 Immature Granulocytes # 0.000 Neutrophils # 0.8 L Lymphocytes # 1.0 Monocytes # 0.2 L Eosinophils # 0.0 Basophils # 0.0 Nucleated Red Blood Cells # 0.0 Sodium Level 142 Potassium Level 3.9 Chloride Level 114 H Carbon Dioxide Level 24 Anion Gap 4 L Blood Urea Nitrogen 6 L Creatinine 0.33 L Est Glomerular Filtrat Rate mL/min > 60 Glucose Level 96 Calcium Level 8.6 Magnesium Level 1.9 Medications Medication Current Medications Sodium Chloride 1,000 ml @ 100 mls/hr Q10H IV Last administered on 02/23/19at 04:51; Admin Dose 100 MLS/HR; Start 02/20/19 at 15:00 Acetaminophen/ Hydrocodone Bitart ([place] (5/325)) 1 tab Q6H PRN PO MODERATE PAIN LEVEL 4-6 Last administered on 02/21/19at 06:34; Admin Dose 1 TAB; Start 02/20/19 at 20:00 Acetaminophen (Tylenol Tab) 650 mg Q6H PRN PO MILD PAIN(1-3)OR ELEVATED TEMP; Start 02/20/19 at 20:00 Ondansetron HCl (Zofran Inj) 4 mg Q6H PRN IV NAUSEA/VOMITING; Start 02/20/19 at 21:00 Docusate Sodium (Colace) 100 mg Q12H PRN PO .CONSTIPATION; Start 02/20/19 at 21:00 Zolpidem Tartrate (Ambien) 5 mg QHS PRN PO .INSOMNIA; Start 02/20/19 at 21:00 Famotidine (Pepcid) 20 mg Q12 PO Last administered on 02/22/19at 21:46; Admin Dose 20 MG; Start 02/20/19 at 21:00 Vancomycin HCl (Vanco Iv Per Pharmacy) VANCOMYCIN PER PHARMACY PER PROTOCOL XX ; Start 02/22/19 at 09:30 Cefepime HCl 50 ml @ 100 mls/hr Q12 IVPB Last administered on 02/22/19at 21:46; Admin Dose 100 MLS/HR; Start 02/22/19 at 10:00 Vancomycin HCl 100 ml @ 100 mls/hr Q12H IVPB Last administered on 02/23/19at 00:20; Admin Dose 100 MLS/HR; Start 02/23/19 at 00:00 GURU LAMB Feb 23, 2019 08:07
--- NOTE | 2019-02-23 08:37 | CONS ---
Assessment/Plan Assessment/Plan Hospital Course (Demo Recall) 58 yo with Her 2 + breast ca s/p chemo, now on adjuvant tx she is admitted for mediport infection she is on broad spectrum abx we are asked to see for neutropenia I suspect this is due to infection and medication/abx neutropenic precautions start GCSF 300mcg daily until ANC >1500 cont current abx transfuse if plt <10k or hgb <7 Consultation Date/Type/Reason Admit Date/Time Feb 20, 2019 at 13:13 Date/Time of Note DATE: 02/23/19 TIME: 08:33 Hx of Present Illness The patient is a 58-year-old [place] female who was diagnosed with locally advanced left breast cancer in August 2018. Patient underwent permacath plac ement on the right side in October 2018. Patient underwent chemotherapy with good response. Patient was following with Dr. Dempsey in oncology consultation. Patient was seen in Dr. Pleitez's office and noted permacath exposure above skin surface. Patient was brought to the hospital today and underwent removal of right chest permacath by radiology. Neoadjuvant Perjeta Taxotere Carboplatin Herceptin started September 2018 she is on perjeta and herceptin now, not on myelsuppressive chemo her cbc from feb 17, showed normal WBC and plt and she had mild anemia hgb 10.2 Constitutional: no complaints, improved Eyes: no complaints Respiratory: no complaints Cardiovascular: no complaints Gastrointestinal: no complaints Genitourinary: no complaints Musculoskeletal: no complaints Skin: no complaints Endocrine: no complaints Lymphatic: no complaints Past Medical History Medications Current Medications Sodium Chloride 1,000 ml @ 100 mls/hr Q10H IV Last administered on 02/23/19at 04:51; Admin Dose 100 MLS/HR; Start 02/20/19 at 15:00 Acetaminophen/ Hydrocodone Bitart ([place] (5/325)) 1 tab Q6H PRN PO MODERATE PA IN LEVEL 4-6 Last administered on 02/21/19at 06:34; Admin Dose 1 TAB; Start 02/20/19 at 20:00 Acetaminophen (Tylenol Tab) 650 mg Q6H PRN PO MILD PAIN(1-3)OR ELEVATED TEMP; Start 02/20/19 at 20:00 Ondansetron HCl (Zofran Inj) 4 mg Q6H PRN IV NAUSEA/VOMITING; Start 02/20/19 at 21:00 Docusate Sodium (Colace) 100 mg Q12H PRN PO .CONSTIPATION; Start 02/20/19 at 21:00 Zolpidem Tartrate (Ambien) 5 mg QHS PRN PO .INSOMNIA; Start 02/20/19 at 21:00 Famotidine (Pepcid) 20 mg Q12 PO Last administered on 02/22/19at 21:46; Admin Dose 20 MG; Start 02/20/19 at 21:00 Vancomycin HCl (Vanco Iv Per Pharmacy) VANCOMYCIN PER PHARMACY PER PROTOCOL XX ; Start 02/22/19 at 09:30 Cefepime HCl 50 ml @ 100 mls/hr Q12 IVPB Last administered on 02/22/19at 21:46; Admin Dose 100 MLS/HR; Start 02/22/19 at 10:00 Vancomycin HCl 100 ml @ 100 mls/hr Q12H IVPB Last administered on 02/23/19at 00:20; Admin Dose 100 MLS/HR; Start 02/23/19 at 00:00 Allergies: Coded Allergies: carboplatin (Verified Allergy, Unknown, 10/18/18) docetaxel (Verified Allergy, Unknown, 10/18/18) pertuzumab (Verified Allergy, Unknown, 10/18/18) trastuzumab (Verified Allergy, Unknown, 10/18/18) Past Surgical History Past Surgical Hx: no surgical history Social History Alcohol Use: none Smoking Status: Never smoker Drug Use: none Exam/Review of Systems Exam Vitals Vital Signs Date Temp Pulse Resp B/P (MAP) Pulse Ox O2 O2 Flow FiO2 Time Delivery Rate 02/23/19 97.6 68 17 97/55 (69) 98 07:37 02/21/19 Room Air 08:48 Intake and Output 02/22/19 02/22/19 02/23/19 1515:00 23:00 07:00 IntakeIntake Total 300 ml 2330 ml 1560 ml OutputOutput Total 500 ml 300 ml BalanceBalance 300 ml 1830 ml 1260 ml Constitutional: alert, oriented, well developed Psych: no complaints, nl mood/affect Head: normocephalic, atraumatic Eyes: nl conjunctiva, EOMI, nl lids, nl sclera, PERRL Extremities: normal pulses 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: WINDOW SHADE CUTTER AND MOUNTER II-XII intact, nl mental status, nl speech, nl strength Results Result Diagram: 02/23/19 0421 02/23/19 0421 Results 24hrs Laboratory Tests Test 02/22/19 10:01 02/23/19 04:21 Lactic Acid Level 2.1 *H Procalcitonin 0.03 HIV (1&2) Antibody NEGATIVE White Blood Count 2.0 L Red Blood Count 2.95 L Hemoglobin 9.1 L Hematocrit 27.7 L Mean Corpuscular Volume 93.9 Mean Corpuscular Hemoglobin 30.8 Mean Corpuscular Hemoglobin Concent 32.9 Red Cell Distribution Width 14.0 Platelet Count 138 L Mean Platelet Volume 9.8 Immature Granulocytes % 0.000 L Neutrophils % 38.7 L Lymphocytes % 49.2 Monocytes % 11.1 H Eosinophils % 0.5 Basophils % 0.5 Nucleated Red Blood Cells % 0.0 Immature Granulocytes # 0.000 Neutrophils # 0.8 L Lymphocytes # 1.0 Monocytes # 0.2 L Eosinophils # 0.0 Basophils # 0.0 Nucleated Red Blood Cells # 0.0 Sodium Level 142 Potassium Level 3.9 Chloride Level 114 H Carbon Dioxide Level 24 Anion Gap 4 L Blood Urea Nitrogen 6 L Creatinine 0.33 L Est Glomerular Filtrat Rate mL/min > 60 Glucose Level 96 Calcium Level 8.6 Magnesium Level 1.9 Medications Medication Current Medications Sodium Chloride 1,000 ml @ 100 mls/hr Q10H IV Last administered on 02/23/19at 04:51; Admin Dose 100 MLS/HR; Start 02/20/19 at 15:00 Acetaminophen/ Hydrocodone Bitart ([place] (5/325)) 1 tab Q6H PRN PO MODERATE PAIN LEVEL 4-6 Last administered on 02/21/19at 06:34; Admin Dose 1 TAB; Start 02/20/19 at 20:00 Acetaminophen (Tylenol Tab) 650 mg Q6H PRN PO MILD PAIN(1-3)OR ELEVATED TEMP; Start 02/20/19 at 20:00 Ondansetron HCl (Zofran Inj) 4 mg Q6H PRN IV NAUSEA/VOMITING; Start 02/20/19 at 21:00 Docusate Sodium (Colace) 100 mg Q12H PRN PO .CONSTIPATION; Start 02/20/19 at 21:00 Zolpidem Tartrate (Ambien) 5 mg QHS PRN PO .INSOMNIA; Start 02/20/19 at 21:00 Famotidine (Pepcid) 20 mg Q12 PO Last administered on 02/22/19at 21:46; Admin Dose 20 MG; Start 02/20/19 at 21:00 Vancomycin HCl (Vanco Iv Per Pharmacy) VANCOMYCIN PER PHARMACY PER PROTOCOL XX ; Start 02/22/19 at 09:30 Cefepime HCl 50 ml @ 100 mls/hr Q12 IVPB Last administered on 02/22/19at 21:46; Admin Dose 100 MLS/HR; Start 02/22/19 at 10:00 Vancomycin HCl 100 ml @ 100 mls/hr Q12H IVPB Last administered on 02/23/19at 00: 20; Admin Dose 100 MLS/HR; Start 02/23/19 at 00:00 MARIA ISABEL GUEVARA Feb 23, 2019 08:36
[2019-02-23] MEDS: CEFEPIME 1GM/50 ML (PMX) 50 ML IVPB SCH ×2 (09:58→20:23)
[2019-02-23] MEDS: FAMOTIDINE 20 MG TAB PO SCH ×2 (09:58→20:23)
[2019-02-23 14:00] VITALS: BP 99/54; PULSE 72; RESP 18
--- NOTE | 2019-02-23 16:31 | PN ---
DATE: 02/23/2019 The patient was admitted because of dehiscence of the skin and the wound over the Port-A-Cath on the right anterior upper chest wall. The patient has a case of cancer of the left breast, locally advanc ed, who has been receiving chemotherapy through the port, but apparently first port area got inflamed about 3 to 4 weeks before coming in and gradually changed the color of the skin area and formed a sc ab on it in the scapula and the port was exposed for a few days, so the patient was admitted urgently and this port was removed by the radiologist. Packed with Xeroform. The patient has been seen by i nfectious disease. Antibiotic has been started. General surgery consultation was also made for woun d care and evaluation of the breast cancer. I saw the patient yesterday. I removed the Xeroform, wh ich has not been left in place under the skin in the area where they removed the port chamber. The w ound was cleaned with Betadine and 1 small sponge with Betadine soaked and inserted into the cavity. This is a procedure that is supposed to be done every day by the nurses. VITAL SIGNS: Temperature 97.6, heart rate 60, respirations 17, blood pressure 100/57, saturation 98% on room air. LABORATORY DATA: Sodium and potassium are normal. BUN and creatinine normal. Procalcitonin, which was done yesterday, was reported 0.03, which is normal, and according to the protocol (as low as this one). Recommendation is to stop the antibiotics, but this decision will be made by the infectious d isease. The CBC today WBC has a slight increase to 2000 with 38.7% neutrophils and 49% lymphocytes, no bands. Hemoglobin 9.1, hematocrit 27.7, platelets 148. PLAN: Continue current care. Surgical group will be following the patient along with other colleagu es. Dictated By: MIREILLE CHAVEZ MD PS/SMITA Conf#: [id number] DID#: [id number]
--- NOTE | 2019-02-23 19:34 | CONS ---
Assessment/Plan Assessment/Plan Hospital Course (Demo Recall) - possible infected portacath site s/p removal - bandemia - leukopenia - improving - Breast CA on chemo - neutropenic - immunocompromised status Recommendations: - continue empiric vanco/cefepime (02/22/2019-) - f/u final wound cx (NGTD), blood cx (NGTD) - serial procalcitonin Management d/w patient, pt's daughter at bedside and with Dr. Andujar Consultation Date/Type/Reason Admit Date/Time Feb 21, 2019 at 14:53 Initial Consult Date 02/22/19 Type of Consult Infectious Disease Requesting Provider: GURU LAMB Date/Time of Note DATE: 02/23/19 TIME: 19:33 24 HR Interval Summary Free Text/Dictation HIV and MRSA screen negative. Has mild R chest wall pain. No SOB, n/v/d, dysuria. Exam/Review of Systems Exam Vitals Vital Signs Date Temp Pulse Resp B/P (MAP) Pulse Ox O2 O2 Flow FiO2 Time Delivery Rate 02/23/19 98.0 72 18 99/54 (69) 96 14:00 02/21/19 Room Air 08:48 Intake and Output 02/22/19 02/22/19 02/23/19 1515:00 23:00 07:00 IntakeIntake Total 300 ml 2330 ml 1560 ml OutputOutput Total 500 ml 300 ml BalanceBalance 300 ml 1830 ml 1260 ml Constitutional: alert, oriented, well developed Psych: no complaints, nl mood/affect Head: normocephalic, other (Alopecia noted) Eyes: nl conjunctiva, nl lids ENMT: nl external ears & nose, nl lips & teeth, nl nasal mucosa & septum, mucosa pink and moist Neck: supple, non-tender Respiratory: clear to auscultation, normal air movement Cardiovascular: regular rate and rhythm, nl pulses Gastrointestinal: soft, non-tender Musculoskeletal: nl extremities to inspection Extremities: normal pulses 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: nl mental status, nl speech (Primarily Yi speaking) Skin: nl turgor, other (R chest wall with dressing intact with stain noted) Results Result Diagram: 02/23/19 0421 02/23/19 0421 Results 24hrs Laboratory Tests Test 02/23/19 04:21 White Blood Count 2.0 L Red Blood Count 2.95 L Hemoglobin 9.1 L Hematocrit 27.7 L Mean Corpuscular Volume 93.9 Mean Corpuscular Hemoglobin 30.8 Mean Corpuscular Hemoglobin Concent 32.9 Red Cell Distribution Width 14.0 Platelet Count 138 L Mean Platelet Volume 9.8 Immature Granulocytes % 0.000 L Neutrophils % 38.7 L Lymphocytes % 49.2 Monocytes % 11.1 H Eosinophils % 0.5 Basophils % 0.5 Nucleated Red Blood Cells % 0.0 Immature Granulocytes # 0.000 Neutrophils # 0.8 L Lymphocytes # 1.0 Monocytes # 0.2 L Eosinophils # 0.0 Basophils # 0.0 Nucleated Red Blood Cells # 0.0 Sodium Level 142 Potassium Level 3.9 Chloride Level 114 H Carbon Dioxide Level 24 Anion Gap 4 L Blood Urea Nitrogen 6 L Creatinine 0.33 L Est Glomerular Filtrat Rate mL/min > 60 Glucose Level 96 Calcium Level 8.6 Magnesium Level 1.9 Medications Medication Current Medications Acetaminophen/ Hydrocodone Bitart ([place] (5/325)) 1 tab Q6H PRN PO MODERATE PAIN LEVEL 4-6 Last administered on 02/21/19at 06:34; Admin Dose 1 TAB; Start 02/20/19 at 20:00 Acetaminophen (Tylenol Tab) 650 mg Q6H PRN PO MILD PAIN(1-3)OR ELEVATED TEMP; Start 02/20/19 at 20:00 Ondansetron HCl (Zofran Inj) 4 mg Q6H PRN IV NAUSEA/VOMITING; Start 02/20/19 at 21:00 Docusate Sodium (Colace) 100 mg Q12H PRN PO .CONSTIPATION; Start 02/20/19 at 21:00 Zolpidem Tartrate (Ambien) 5 mg QHS PRN PO .INSOMNIA; Start 02/20/19 at 21:00 Famotidine (Pepcid) 20 mg Q12 PO Last administered on 02/23/19at 09:58; Admin Dose 20 MG; Start 02/20/19 at 21:00 Vancomycin HCl (Vanco Iv Per Pharmacy) VANCOMYCIN PER PHARMACY PER PROTOCOL XX ; Start 02/22/19 at 09:30 Cefepime HCl 50 ml @ 100 mls/hr Q12 IVPB Last administered on 02/23/19at 09:58; Admin Dose 100 MLS/HR; Start 02/22/19 at 10:00 Vancomycin HCl 100 ml @ 100 mls/hr Q12H IVPB Last administered on 02/23/19at 14:17; Admin Dose 100 MLS/HR; Start 02/23/19 at 00:00 Miscellaneous Information (*Rx Drug Level Order Reminder*) VANCO TROUGH @ 2,300 ON... 2300 ONCE XX ; Start 02/23/19 at 23:00; Stop 02/23/19 at 23:01 CJ CARRERA NP Feb 23, 2019 19:34
[2019-02-23 19:45] VITALS: BP 110/57; RESP 18
[2019-02-24] MEDS: VANCOMYCIN 500 MG (PMX) 100 ML IVPB SCH ×4 (01:07→23:41)
[2019-02-24 02:38] VITALS: BP 88/50; PULSE 63; RESP 18
[2019-02-24 07:28] VITALS: BP 94/53; PULSE 66; RESP 19
[2019-02-24] MEDS: FAMOTIDINE 20 MG TAB PO SCH ×2 (09:56→21:02)
[2019-02-24] MEDS: CEFEPIME 1GM/50 ML (PMX) 50 ML IVPB SCH ×2 (09:57→21:03)
--- NOTE | 2019-02-24 13:05 | CONS ---
Assessment/Plan Assessment/Plan Hospital Course (Demo Recall) - possible infected portacath site s/p removal - bandemia - leukopenia - improving - Breast CA on chemo - neutropenic - immunocompromised status Recommendations: - continue empiric vanco/cefepime (02/22/2019-) - f/u chest wound cx (NGTD), blood cx (NGTD) - serial procalcitonin Management d/w patient, and with Dr. Andujar via [employer] messaging. Consultation Date/Type/Reason Admit Date/Time Feb 21, 2019 at 14:53 Initial Consult Date 02/22/19 Requesting Provider: GURU LAMB Date/Time of Note DATE: 02/24/19 TIME: 13:04 24 HR Interval Summary Free Text/Dictation Afebrile, wbc 2.0. lactic 0.9. Procalc 0.03. cultures ngtd. Detailed Summary Eyes: no complaints ENT: no complaints Respiratory: no complaints; No cough, No shortness of breath, No wheezing Cardiovascular: no complaints, other (R chest discomfort at previous portacath site. states 09/26. ); No chest pain, No edema, No palpitations Gastrointestinal: diarrhea (pt reports slightly loose stool, 2-3 / day. ); No constipation, No nausea, No vomiting Genitourinary: no complaints Musculoskeletal: no complaints Skin: no complaints Neurologic: no complaints Endocrine: no complaints Lymphatic: no complaints Psychological: no complaints Exam/Review of Systems Exam Vitals Vital Signs Date Temp Pulse Resp B/P (MAP) Pulse Ox O2 O2 Flow FiO2 Time Delivery Rate 02/24/19 97.1 66 19 94/53 (67) 99 07:28 02/21/19 Room Air 08:48 Allergies Coded Allergies carboplatin (Verified Allergy, Unknown, 10/18/18) docetaxel (Verified Allergy, Unknown, 10/18/18) pertuzumab (Verified Allergy, Unknown, 10/18/18) trastuzumab (Verified Allergy, Unknown, 10/18/18) Intake and Output 02/23/19 02/23/19 02/24/19 1515:00 23:00 07:00 IntakeIntake Total 1350 ml 750 ml 220 ml BalanceBalance 1350 ml 750 ml 220 ml Constitutional: alert, oriented, well developed, other (was sitting in sofa chair having lunch, stood up and ambulated to the bed for assessment.) Psych: no complaints, nl mood/affect Head: normocephalic, atraumatic Eyes: nl conjunctiva, nl lids, nl sclera ENMT: nl external ears & nose, nl nasal mucosa & septum, mucosa pink and moist Neck: supple, non-tender Respiratory: clear to auscultation, normal air movement Cardiovascular: regular rate and rhythm, nl pulses Gastrointestinal: soft, non-tender, bowel sounds (noprmoactive ) Genitourinary - Female: other (bladder flat) Musculoskeletal: nl extremities to inspection, nl gait and stance Extremities: normal pulses 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, nl mental status, nl speech, nl strength, other (Yakut speaking, some albanian) Skin: nl turgor, other (R chest wall dressing is c/d/i [previous portacath site]) Results Result Diagram: 02/24/19 0453 02/23/19 0421 Results 24hrs Laboratory Tests Test 02/23/19 22:52 02/24/19 04:53 Vancomycin Level Trough < 5.0 L White Blood Count 2.7 #L Red Blood Count 3.28 L Hemoglobin 9.8 L Hematocrit 30.3 L Mean Corpuscular Volume 92.4 Mean Corpuscular Hemoglobin 29.9 Mean Corpuscular Hemoglobin Concent 32.3 Red Cell Distribution Width 14.1 Platelet Count 159 Mean Platelet Volume 9.7 Immature Granulocytes % 0.000 L Neutrophils % 42.4 Lymphocytes % 47.6 Monocytes % 8.2 Eosinophils % 1.1 Basophils % 0.7 Nucleated Red Blood Cells % 0.0 Immature Granulocytes # 0.000 Neutrophils # 1.1 L Lymphocytes # 1.3 Monocytes # 0.2 L Eosinophils # 0.0 Basophils # 0.0 Nucleated Red Blood Cells # 0.0 Lactic Acid Level 0.9 Medications Medication Current Medications Acetaminophen/ Hydrocodone Bitart ([place] (5/325)) 1 tab Q6H PRN PO MODERATE PAIN LEVEL 4-6 Last administered on 02/21/19at 06:34; Admin Dose 1 TAB; Start 02/20/19 at 20:00 Acetaminophen (Tylenol Tab) 650 mg Q6H PRN PO MILD PAIN(1-3)OR ELEVATED TEMP; Start 02/20/19 at 20:00 Ondansetron HCl (Zofran Inj) 4 mg Q6H PRN IV NAUSEA/VOMITING; Start 02/20/19 at 21:00 Docusate Sodium (Colace) 100 mg Q12H PRN PO .CONSTIPATION; Start 02/20/19 at 21:00 Zolpidem Tartrate (Ambien) 5 mg QHS PRN PO .INSOMNIA; Start 02/20/19 at 21:00 Famotidine (Pepcid) 20 mg Q12 PO Last administered on 02/24/19at 09:56; Admin Dose 20 MG; Start 02/20/19 at 21:00 Vancomycin HCl (Vanco Iv Per Pharmacy) VANCOMYCIN PER PHARMACY PER PROTOCOL XX ; Start 02/22/19 at 09:30 Cefepime HCl 50 ml @ 100 mls/hr Q12 IVPB Last administered on 02/24/19at 09:57; Admin Dose 100 MLS/HR; Start 02/22/19 at 10:00 Vancomycin HCl 100 ml @ 100 mls/hr Q8H IVPB Last administered on 02/24/19at 08:25; Admin Dose 100 MLS/HR; Start 02/24/19 at 00:00 CIRILO GARCIA NP Feb 24, 2019 13:05
--- NOTE | 2019-02-24 14:06 | PN ---
Date/Time of Note Date/Time of Note DATE: 02/24/19 TIME: 14:01 Assessment/Plan VTE Prophylaxis Risk score (from [facility])>0 risk: 3 SCD applied (from [facility]): Yes Pharmacological prophylaxis: NA/contraindicated Pharm contraindication: surgical contra Lines/Catheters IV [facility]from [facility] Peripheral IV Urinary Cath still in place: No Assessment/Plan Hospital Course Patient continues on broad-spectrum antibiotics for possible Port-A-Cath infection, remains hemodynamically stable, afebrile, denies pain. Continue neutropenic precaution. Assessment/Plan -Possible Port-A-Cath infection and exposure, status post removal by interventional radiology. Continue antibiotics per ID. Dr. Andujar is following in infection disease consultation. Follow-up on cultures. -Neutropenia, continue neutropenic precaution. Dr. Serrano is following in hematology consultation. -Locally advanced left breast cancer. Status post chemotherapy. Dr. Jack is following in general surgery consultation. Further recommendations based on clinical course. Plan of care discussed with Dr. Jovel. Result Diagram: 02/24/19 0453 02/23/19 0421 Results 24hrs Laboratory Tests Test 02/23/19 22:52 02/24/19 04:53 Vancomycin Level Trough < 5.0 L White Blood Count 2.7 #L Red Blood Count 3.28 L Hemoglobin 9.8 L Hematocrit 30.3 L Mean Corpuscular Volume 92.4 Mean Corpuscular Hemoglobin 29.9 Mean Corpuscular Hemoglobin Concent 32.3 Red Cell Distribution Width 14.1 Platelet Count 159 Mean Platelet Volume 9.7 Immature Granulocytes % 0.000 L Neutrophils % 42.4 Lymphocytes % 47.6 Monocytes % 8.2 Eosinophils % 1.1 Basophils % 0.7 Nucleated Red Blood Cells % 0.0 Immature Granulocytes # 0.000 Neutrophils # 1.1 L Lymphocytes # 1.3 Monocytes # 0.2 L Eosinophils # 0.0 Basophils # 0.0 Nucleated Red Blood Cells # 0.0 Lactic Acid Level 0.9 Exam/Review of Systems Exam Vitals Vital Signs Date Temp Pulse Resp B/P (MAP) Pulse Ox O2 O2 Flow FiO2 Time Delivery Rate 02/24/19 97.1 66 19 94/53 (67) 99 07:28 02/21/19 Room Air 08:48 Intake and Output 02/23/19 02/23/19 02/24/19 1515:00 23:00 07:00 IntakeIntake Total 1350 ml 750 ml 220 ml BalanceBalance 1350 ml 750 ml 220 ml Exam Constitutional: alert, oriented Respiratory: clear to auscultation Cardiovascular: nl pulses Gastrointestinal: soft, non-tender Musculoskeletal: nl extremities to inspection 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: nl mental status Skin: other (Right upper chest surgical dressing) Results Results 24hrs Laboratory Tests Test 02/23/19 22:52 02/24/19 04:53 Vancomycin Level Trough < 5.0 L White Blood Count 2.7 #L Red Blood Count 3.28 L Hemoglobin 9.8 L Hematocrit 30.3 L Mean Corpuscular Volume 92.4 Mean Corpuscular Hemoglobin 29.9 Mean Corpuscular Hemoglobin Concent 32.3 Red Cell Distribution Width 14.1 Platelet Count 159 Mean Platelet Volume 9.7 Immature Granulocytes % 0.000 L Neutrophils % 42.4 Lymphocytes % 47.6 Monocytes % 8.2 Eosinophils % 1.1 Basophils % 0.7 Nucleated Red Blood Cells % 0.0 Immature Granulocytes # 0.000 Neutrophils # 1.1 L Lymphocytes # 1.3 Monocytes # 0.2 L Eosinophils # 0.0 Basophils # 0.0 Nucleated Red Blood Cells # 0.0 Lactic Acid Level 0.9 Medications Medication Current Medications Acetaminophen/ Hydrocodone Bitart ([place] (5/325)) 1 tab Q6H PRN PO MODERATE PAIN LEVEL 4-6 Last administered on 02/21/19at 06:34; Admin Dose 1 TAB; Start 02/20/19 at 20:00 Acetaminophen (Tylenol Tab) 650 mg Q6H PRN PO MILD PAIN(1-3)OR ELEVATED TEMP; Start 02/20/19 at 20:00 Ondansetron HCl (Zofran Inj) 4 mg Q6H PRN IV NAUSEA/VOMITING; Start 02/20/19 at 21:00 Docusate Sodium (Colace) 100 mg Q12H PRN PO .CONSTIPATION; Start 02/20/19 at 21:00 Zolpidem Tartrate (Ambien) 5 mg QHS PRN PO .INSOMNIA; Start 02/20/19 at 21:00 Famotidine (Pepcid) 20 mg Q12 PO Last administered on 02/24/19at 09:56; Admin Dose 20 MG; Start 02/20/19 at 21:00 Vancomycin HCl (Vanco Iv Per Pharmacy) VANCOMYCIN PER PHARMACY PER PROTOCOL XX ; Start 02/22/19 at 09:30 Cefepime HCl 50 ml @ 100 mls/hr Q12 IVPB Last administered on 02/24/19at 09:57; Admin Dose 100 MLS/HR; Start 02/22/19 at 10:00 Vancomycin HCl 100 ml @ 100 mls/hr Q8H IVPB Last administered on 02/24/19at 08:25; Admin Dose 100 MLS/HR; Start 02/24/19 at 00:00 CAM GARCIA Feb 24, 2019 14:06
--- NOTE | 2019-02-24 15:10 | EN ---
Date/Time of Note Date/Time of Note DATE: 02/24/19 TIME: 15:10 Event Note Medicine Medicine Event Note I personally examined the patient today and directed care to STATEMENT CLERKS MANAGER. await cxs. cont. abx for now. CON HERNANDEZ MD Feb 24, 2019 15:10
[2019-02-24 15:17] VITALS: BP 101/56; PULSE 78; RESP 19
[2019-02-24] MEDS ORDERED: FILGRASTIM-AAFI 300 MCG/0.5 ML SYRINGE SC SCH (17:00)
[2019-02-24 19:15] VITALS: BP 87/54; PULSE 66; RESP 18
--- NOTE | 2019-02-24 19:19 | PN ---
DATE: 02/24/2019 SUBJECTIVE: No specific and new complaint. OBJECTIVE: GENERAL: Awake, alert and oriented. VITAL SIGNS: Temperature maximum today 98.1, heart rate 78, respiration 19, blood pressure 101/56, saturation 98% room air. HEART: Regular. LUNGS: Clear. CHEST: Wound on the right side anteriorly, dressing was intact, removed. There is a Betadine soaked, small sponge 3 x 3 semi-packed in the cavity of the previously Port-A-Cath reservoir which has been removed because of the possibility of infection and exposure. LABORATORY DATA: Today, WBC has increased to 2700 with 42% segmented. There is slightly increase to WBC which was 1.4 on 02/20/2019. PLAN: At this time, the patient is on antibiotic, vancomycin and cefepime empirically considering possibility of infected port site, especially because the patient has been on chemotherapy . Also, patient has been started on hematopoietic agents, Filgrastim, to increase the leukocyte count. Plan is to continue for 3 more day as I understand from the notes and by that time, hopefully the wound has been much clean and more closed and may not require packing with Betadine soaked sponges. In any case, the surgical team will continue to follow the patient along with other colleagues. Dictated By: MIREILLE ESQUEDA/SMITA Conf#: [id number] DID#: [id number] MTDD
[2019-02-24 21:00] VITALS: BP 92/43; PULSE 70; RESP 18
[2019-02-25 02:18] VITALS: BP 80/48; PULSE 65; RESP 16
[2019-02-25] MEDS ORDERED: SOD CHLORIDE 0.9% 500 ML IV ONE (02:30)
[2019-02-25 03:36] VITALS: BP 89/51
[2019-02-25 06:11] VITALS: BP 90/49; PULSE 59; RESP 18
[2019-02-25 07:58] VITALS: BP 87/55; PULSE 71; RESP 18
[2019-02-25] MEDS: CEFEPIME 1GM/50 ML (PMX) 50 ML IVPB SCH ×2 (09:00→20:59)
[2019-02-25] MEDS: FAMOTIDINE 20 MG TAB PO SCH ×2 (09:00→20:59)
--- NOTE | 2019-02-25 09:25 | CONS ---
Assessment/Plan Assessment/Plan Hospital Course (Demo Recall) 58 yo with Her 2 + breast ca s/p chemo, now on adjuvant tx -she is admitted for mediport infection. mediport has since been removed. -continue broad spectrum abx -f/u WBC count today. continue GCSF 300mcg daily until ANC >15 -transfuse if plt <10k or hgb <7 Consultation Date/Type/Reason Admit Date/Time Feb 21, 2019 at 14:53 Initial Consult Date 02/22/19 Type of Consult oncology Reason for Consultation breast cancer/ neutropenia Requesting Provider: GURU LAMB Date/Time of Note DATE: 02/25/19 TIME: 09:23 24 HR Interval Summary Free Text/Dictation no acute overnight events. pt currently afebrile Exam/Review of Systems Exam Vitals Vital Signs Date Temp Pulse Resp B/P (MAP) Pulse Ox O2 O2 Flow FiO2 Time Delivery Rate 02/25/19 98.6 71 18 87/55 (66) 96 Room Air 07:58 Intake and Output 02/24/19 02/24/19 02/25/19 1515:00 23:00 07:00 IntakeIntake Total 150 ml 770 ml 1080 ml BalanceBalance 150 ml 770 ml 1080 ml Constitutional: alert, oriented Psych: no complaints Head: normocephalic Eyes: nl conjunctiva ENMT: nl external ears & nose Neck: supple Respiratory: clear to auscultation Cardiovascular: regular rate and rhythm Gastrointestinal: soft Musculoskeletal: nl extremities to inspection Extremities: normal pulses 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 Skin: nl turgor Results Result Diagram: 02/25/19 0705 02/23/19 0421 Results 24hrs Laboratory Tests Test 02/25/19 07:05 White Blood Count Pending Red Blood Count 3.13 L Hemoglobin 9.5 L Hematocrit 29.0 L Mean Corpuscular Volume 92.7 Mean Corpuscular Hemoglobin 30.4 Mean Corpuscular Hemoglobin Concent 32.8 Red Cell Distribution Width 14.6 H Platelet Count 162 Mean Platelet Volume 10.1 Immature Granulocytes % 1.300 H Neutrophils % Lymphocytes % Monocytes % Eosinophils % Basophils % Nucleated Red Blood Cells % 0.0 Immature Granulocytes # 0.420 H Neutrophils # Lymphocytes # Monocytes # Eosinophils # Basophils # Nucleated Red Blood Cells # Vancomycin Level Trough 8.8 L Medications Medication Current Medications Acetaminophen/ Hydrocodone Bitart ([place] (5/325)) 1 tab Q6H PRN PO MODERATE PAIN LEVEL 4-6 Last administered on 02/21/19at 06:34; Admin Dose 1 TAB; Start 02/20/19 at 20:00 Acetaminophen (Tylenol Tab) 650 mg Q6H PRN PO MILD PAIN(1-3)OR ELEVATED TEMP; Start 02/20/19 at 20:00 Ondansetron HCl (Zofran Inj) 4 mg Q6H PRN IV NAUSEA/VOMITING; Start 02/20/19 at 21:00 Docusate Sodium (Colace) 100 mg Q12H PRN PO .CONSTIPATION; Start 02/20/19 at 21:00 Zolpidem Tartrate (Ambien) 5 mg QHS PRN PO .INSOMNIA; Start 02/20/19 at 21:00 Famotidine (Pepcid) 20 mg Q12 PO Last administered on 02/25/19at 09:00; Admin Dose 20 MG; Start 02/20/19 at 21:00 Vancomycin HCl (Vanco Iv Per Pharmacy) VANCOMYCIN PER PHARMACY PER PROTOCOL XX ; Start 02/22/19 at 09:30 Cefepime HCl 50 ml @ 100 mls/hr Q12 IVPB Last administered on 02/25/19at 09:00; Admin Dose 100 MLS/HR; Start 02/22/19 at 10:00 Vancomycin HCl 100 ml @ 100 mls/hr Q8H IVPB Last administered on 02/24/19at 23:41; Admin Dose 100 MLS/HR; Start 02/24/19 at 00:00 Filgrastim (Nivestym) 300 mcg DAILY@1700 SC Last administered on 02/24/19at 16:34; Admin Dose 300 MCG; Start 02/24/19 at 17:00; Stop 02/27/19 at 16:59 ROMI BOWIE M.D. Feb 25, 2019 09:25
[2019-02-25] MEDS: VANCOMYCIN 500 MG (PMX) 100 ML IVPB SCH (10:01)
--- NOTE | 2019-02-25 11:12 | CONS ---
Assessment/Plan Assessment/Plan Hospital Course (Demo Recall) - possible infected portacath site s/p removal - chest wall culture site was negative. - bandemia - s/p leukopenia - leukocytosis - rec'd neupogen - Breast CA on chemo - s/p neutropenia - immunocompromised status Recommendations: - continue empiric cefepime (02/22/2019-) - d/c vanco (02/22/19 - 02/25/19) - f/u blood cx (NGTD) - serial procalcitonin Management d/w patient, and with Dr. Andujar via [employer] messaging. Consultation Date/Type/Reason Admit Date/Time Feb 21, 2019 at 14:53 Initial Consult Date 02/22/19 Type of Consult ID Requesting Provider: GURU LAMB Date/Time of Note DATE: 02/25/19 TIME: 11:11 24 HR Interval Summary Free Text/Dictation patient remains afebrile. Noted wbc at 31.3 today. Patient receiving neupogen. blood cultures ngtd, wound culture was neg. Lactic 0.9 and procalc 0.03. Detailed Summary Eyes: no complaints ENT: no complaints Respiratory: no complaints; No cough, No shortness of breath, No wheezing Cardiovascular: no complaints, other (R chest discomfort previous portacath site ); No chest pain, No edema, No palpitations Gastrointestinal: no complaints; No diarrhea, No nausea, No vomiting Genitourinary: no complaints; No dysuria Musculoskeletal: no complaints Skin: no complaints Neurologic: no complaints Endocrine: no complaints Lymphatic: no complaints Psychological: no complaints, nl mood/affect Exam/Review of Systems Exam Vitals Vital Signs Date Temp Pulse Resp B/P (MAP) Pulse Ox O2 O2 Flow FiO2 Time Delivery Rate 02/25/19 98.6 71 18 87/55 (66) 96 Room Air 07:58 Allergies Coded Allergies carboplatin (Verified Allergy, Unknown, 10/18/18) docetaxel (Verified Allergy, Unknown, 10/18/18) pertuzumab (Verified Allergy, Unknown, 10/18/18) trastuzumab (Verified Allergy, Unknown, 10/18/18) Intake and Output 02/24/19 02/24/19 02/25/19 1515:00 23:00 07:00 IntakeIntake Total 150 ml 770 ml 1080 ml BalanceBalance 150 ml 770 ml 1080 ml Exam Constitutional: alert, oriented, well developed, other (resting in bed texting on phone) Psych: no complaints, nl mood/affect Head: normocephalic, atraumatic Eyes: nl conjunctiva, nl lids, nl sclera ENMT: nl external ears & nose, nl nasal mucosa & septum, mucosa pink and moist Neck: supple, non-tender Respiratory: clear to auscultation, normal air movement Cardiovascular: regular rate and rhythm, nl pulses Gastrointestinal: soft, non-tender, bowel sounds (normoactive) Genitourinary - Female: other (bladder flat) Musculoskeletal: nl extremities to inspection, nl gait and stance Extremities: normal pulses 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: 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, nl mental status, nl speech, nl strength, other (Welsh speaking, some [place]) Skin: nl turgor, other (R chest wall dressing is c/d/i [previous portacath site]) Results Result Diagram: 02/25/19 0705 02/23/19 0421 Results 24hrs Laboratory Tests Test 02/25/19 07:05 White Blood Count 31.3 #H Red Blood Count 3.13 L Hemoglobin 9.5 L Hematocrit 29.0 L Mean Corpuscular Volume 92.7 Mean Corpuscular Hemoglobin 30.4 Mean Corpuscular Hemoglobin Concent 32.8 Red Cell Distribution Width 14.6 H Platelet Count 162 Mean Platelet Volume 10.1 Immature Granulocytes % 1.300 H Neutrophils % Segmented Neutrophils % (Manual) 77 Band Neutrophils % (Manual) 16 H Lymphocytes % Lymphocytes % (Manual) 5 L Monocytes % Monocytes % (Manual) 2 Eosinophils % Basophils % Nucleated Red Blood Cells % 0.0 Immature Granulocytes # 0.420 H Neutrophils # Neutrophils # (Manual) 25.7 H Band Neutrophils # 5.0 H Lymphocytes (Manual) 1.5 Lymphocytes # Monocytes # Monocytes # (Manual) 0.6 Eosinophils # Basophils # Nucleated Red Blood Cells # Platelet Estimate NORMAL Poikilocytosis 1+ Vancomycin Level Trough 8.8 L Medications Medication Current Medications Acetaminophen/ Hydrocodone Bitart ([place] (5/325)) 1 tab Q6H PRN PO MODERATE PAIN LEVEL 4-6 Last administered on 02/21/19at 06:34; Admin Dose 1 TAB; Start 02/20/19 at 20:00 Acetaminophen (Tylenol Tab) 650 mg Q6H PRN PO MILD PAIN(1-3)OR ELEVATED TEMP; Start 02/20/19 at 20:00 Ondansetron HCl (Zofran Inj) 4 mg Q6H PRN IV NAUSEA/VOMITING; Start 02/20/19 at 21:00 Docusate Sodium (Colace) 100 mg Q12H PRN PO .CONSTIPATION; Start 02/20/19 at 21:00 Zolpidem Tartrate (Ambien) 5 mg QHS PRN PO .INSOMNIA; Start 02/20/19 at 21:00 Famotidine (Pepcid) 20 mg Q12 PO Last administered on 02/25/19at 09:00; Admin Dose 20 MG; Start 02/20/19 at 21:00 Vancomycin HCl (Vanco Iv Per Pharmacy) VANCOMYCIN PER PHARMACY PER PROTOCOL XX ; Start 02/22/19 at 09:30 Cefepime HCl 50 ml @ 100 mls/hr Q12 IVPB Last administered on 02/25/19at 09:00; Admin Dose 100 MLS/HR; Start 02/22/19 at 10:00 Vancomycin HCl 100 ml @ 100 mls/hr Q8H IVPB Last administered on 02/25/19at 10:01; Admin Dose 100 MLS/HR; Start 02/24/19 at 00:00 Filgrastim (Nivestym) 300 mcg DAILY@1700 SC Last administered on 02/24/19at 1 6:34; Admin Dose 300 MCG; Start 02/24/19 at 17:00; Stop 02/27/19 at 16:59 CIRILO GARCIA NP Feb 25, 2019 11:12
--- NOTE | 2019-02-25 13:28 | PN ---
Date/Time of Note Date/Time of Note DATE: 02/25/19 TIME: 13:22 Assessment/Plan VTE Prophylaxis Risk score (from [facility] [place]0 risk: 3 SCD applied (from [facility] [place]): Yes Pharmacological prophylaxis: NA/contraindicated Pharm contraindication: thrombocytopenia Lines/Catheters IV [facility]ter Type (from [facility]): Peripheral IV Urinary Cath still in place: No Assessment/Plan Hospital Course No acute events overnight, patient denies any pain, borderline blood pressure however patient is asymptomatic denies any dizziness. White blood cells are 31,000 patient recently received filgrastim. Continues on cefepime for possible Port-A-Cath in infection. Assessment/Plan -Possible Port-A-Cath infection and exposure, status post removal by interventional radiology. Continue antibiotics per ID. Dr. Andujar is following in infection disease consultation. Follow-up on cultures. -Neutropenia, resolved. S/p GCSF. Dr. Serrano is following in hematology consultation. -Locally advanced left breast cancer. Status post chemotherapy. Dr. Jack is following in general surgery consultation. Further recommendations based on clinical course. Plan of care discussed with Dr. Jovel. Result Diagram: 02/25/19 0705 02/23/19 0421 Results 24hrs Laboratory Tests Test 02/25/19 07:05 White Blood Count 31.3 #H Red Blood Count 3.13 L Hemoglobin 9.5 L Hematocrit 29.0 L Mean Corpuscular Volume 92.7 Mean Corpuscular Hemoglobin 30.4 Mean Corpuscular Hemoglobin Concent 32.8 Red Cell Distribution Width 14.6 H Platelet Count 162 Mean Platelet Volume 10.1 Immature Granulocytes % 1.300 H Neutrophils % Segmented Neutrophils % (Manual) 77 Band Neutrophils % (Manual) 16 H Lymphocytes % Lymphocytes % (Manual) 5 L Monocytes % Monocytes % (Manual) 2 Eosinophils % Basophils % Nucleated Red Blood Cells % 0.0 Immature Granulocytes # 0.420 H Neutrophils # Neutrophils # (Manual) 25.7 H Band Neutrophils # 5.0 H Lymphocytes (Manual) 1.5 Lymphocytes # Monocytes # Monocytes # (Manual) 0.6 Eosinophils # Basophils # Nucleated Red Blood Cells # Platelet Estimate NORMAL Poikilocytosis 1+ Vancomycin Level Trough 8.8 L Exam/Review of Systems Exam Vitals Vital Signs Date Temp Pulse Resp B/P (MAP) Pulse Ox O2 O2 Flow FiO2 Time Delivery Rate 02/25/19 98.6 71 18 87/55 (66) 96 Room Air 07:58 Intake and Output 02/24/19 02/24/19 02/25/19 1515:00 23:00 07:00 IntakeIntake Total 150 ml 770 ml 1080 ml BalanceBalance 150 ml 770 ml 1080 ml Exam Constitutional: alert, oriented Respiratory: clear to auscultation Cardiovascular: nl pulses Gastrointestinal: soft, non-tender Musculoskeletal: nl extremities to inspection 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: nl mental status Skin: other (Right upper chest surgical dressing) Results Results 24hrs Laboratory Tests Test 02/25/19 07:05 White Blood Count 31.3 #H Red Blood Count 3.13 L Hemoglobin 9.5 L Hematocrit 29.0 L Mean Corpuscular Volume 92.7 Mean Corpuscular Hemoglobin 30.4 Mean Corpuscular Hemoglobin Concent 32.8 Red Cell Distribution Width 14.6 H Platelet Count 162 Mean Platelet Volume 10.1 Immature Granulocytes % 1.300 H Neutrophils % Segmented Neutrophils % (Manual) 77 Band Neutrophils % (Manual) 16 H Lymphocytes % Lymphocytes % (Manual) 5 L Monocytes % Monocytes % (Manual) 2 Eosinophils % Basophils % Nucleated Red Blood Cells % 0.0 Immature Granulocytes # 0.420 H Neutrophils # Neutrophils # (Manual) 25.7 H Band Neutrophils # 5.0 H Lymphocytes (Manual) 1.5 Lymphocytes # Monocytes # Monocytes # (Manual) 0.6 Eosinophils # Basophils # Nucleated Red Blood Cells # Platelet Estimate NORMAL Poikilocytosis 1+ Vancomycin Level Trough 8.8 L Medications Medication Current Medications Acetaminophen/ Hydrocodone Bitart ([place] (5/325)) 1 tab Q6H PRN PO MODERATE PAIN LEVEL 4-6 Last administered on 02/21/19at 06:34; Admin Dose 1 TAB; Start 02/20/19 at 20:00 Acetaminophen (Tylenol Tab) 650 mg Q6H PRN PO MILD PAIN(1-3)OR ELEVATED TEMP; Start 02/20/19 at 20:00 Ondansetron HCl (Zofran Inj) 4 mg Q6H PRN IV NAUSEA/VOMITING; Start 02/20/19 at 21:00 Docusate Sodium (Colace) 100 mg Q12H PRN PO .CONSTIPATION; Start 02/20/19 at 21:00 Zolpidem Tartrate (Ambien) 5 mg QHS PRN PO .INSOMNIA; Start 02/20/19 at 21:00 Famotidine (Pepcid) 20 mg Q12 PO Last administered on 02/25/19at 09:00; Admin Dose 20 MG; Start 02/20/19 at 21:00 Cefepime HCl 50 ml @ 100 mls/hr Q12 IVPB Last administered on 02/25/19at 09:00; Admin Dose 100 MLS/HR; Start 02/22/19 at 10:00 Filgrastim (Nivestym) 300 mcg DAILY@1700 SC Last administered on 02/24/19at 16:34; Admin Dose 300 MCG; Start 02/24/19 at 17:00; Stop 02/27/19 at 16:59 CAM GARCIA Feb 25, 2019 13:28
[2019-02-25 14:40] VITALS: BP 88/46; PULSE 70; RESP 18
--- NOTE | 2019-02-25 14:41 | CONS ---
Assessment/Plan Assessment/Plan Hospital Course (Demo Recall) 58 yo with Her 2 + breast ca s/p chemo, now on adjuvant tx with herceptin and perjeta she is admitted for mediport infection she is on broad spectrum abx we are asked to see for neutropenia I suspect this is due to infection and medication/abx neutropenic precautions cont GCSF 300mcg daily until ANC >1500 cont current abx transfuse if plt <10k or hgb <7 discussed with pt with family partner Consultation Date/Type/Reason Admit Date/Time Feb 21, 2019 at 14:53 Initial Consult Date 02/22/19 Requesting Provider: GURU LAMB Date/Time of Note DATE: 02/24/19 TIME: 14:40 24 HR Interval Summary Free Text/Dictation doing well no fevers or chills no port pain Exam/Review of Systems Exam Vitals Vital Signs Date Temp Pulse Resp B/P (MAP) Pulse Ox O2 O2 Flow FiO2 Time Delivery Rate 02/25/19 98.6 71 18 87/55 (66) 96 Room Air 07:58 Intake and Output 02/24/19 02/24/19 02/25/19 1515:00 23:00 07:00 IntakeIntake Total 150 ml 770 ml 1080 ml BalanceBalance 150 ml 770 ml 1080 ml Results Result Diagram: 02/25/19 0705 02/23/19 0421 Results 24hrs Laboratory Tests Test 02/25/19 07:05 White Blood Count 31.3 #H Red Blood Count 3.13 L Hemoglobin 9.5 L Hematocrit 29.0 L Mean Corpuscular Volume 92.7 Mean Corpuscular Hemoglobin 30.4 Mean Corpuscular Hemoglobin Concent 32.8 Red Cell Distribution Width 14.6 H Platelet Count 162 Mean Platelet Volume 10.1 Immature Granulocytes % 1.300 H Neutrophils % Segmented Neutrophils % (Manual) 77 Band Neutrophils % (Manual) 16 H Lymphocytes % Lymphocytes % (Manual) 5 L Monocytes % Monocytes % (Manual) 2 Eosinophils % Basophils % Nucleated Red Blood Cells % 0.0 Immature Granulocytes # 0.420 H Neutrophils # Neutrophils # (Manual) 25.7 H Band Neutrophils # 5.0 H Lymphocytes (Manual) 1.5 Lymphocytes # Monocytes # Monocytes # (Manual) 0.6 Eosinophils # Basophils # Nucleated Red Blood Cells # Platelet Estimate NORMAL Poikilocytosis 1+ Vancomycin Level Trough 8.8 L Medications Medication Current Medications Acetaminophen/ Hydrocodone Bitart ([place] (5/325)) 1 tab Q6H PRN PO MODERATE PAIN LEVEL 4-6 Last administered on 02/21/19at 06:34; Admin Dose 1 TAB; Start 02/20/19 at 20:00 Acetaminophen (Tylenol Tab) 650 mg Q6H PRN PO MILD PAIN(1-3)OR ELEVATED TEMP; Start 02/20/19 at 20:00 Ondansetron HCl (Zofran Inj) 4 mg Q6H PRN IV NAUSEA/VOMITING; Start 02/20/19 at 21:00 Docusate Sodium (Colace) 100 mg Q12H PRN PO .CONSTIPATION; Start 02/20/19 at 21:00 Zolpidem Tartrate (Ambien) 5 mg QHS PRN PO .INSOMNIA; Start 02/20/19 at 21:00 Famotidine (Pepcid) 20 mg Q12 PO Last administered on 02/25/19at 09:00; Admin Dose 20 MG; Start 02/20/19 at 21:00 Cefepime HCl 50 ml @ 100 mls/hr Q12 IVPB Last administered on 02/25/19at 09:00; Admin Dose 100 MLS/HR; Start 02/22/19 at 10:00 Filgrastim (Nivestym) 300 mcg DAILY@1700 SC Last administered on 02/24/19at 16:34; Admin Dose 300 MCG; Start 02/24/19 at 17:00; Stop 02/27/19 at 16:59 MARIA ISABEL GUEVARA Feb 25, 2019 14:41
[2019-02-25] MEDS ORDERED: VANCOMYCIN 750 MG (PMX) 250 ML IVPB SCH (16:00)
--- NOTE | 2019-02-25 16:50 | PN ---
DATE: 02/25/2019 The patient has been admitted because of the lesions of the skin on top of the Port-A-Cath area and r equiring to gently remove that Port-A-Cath and treat the area at the open wound to heal by secondary intention. Meanwhile the patient has been on chemotherapy and leukocyte count was 1400 only; therefo re, high dose antibiotic has been started. SUBJECTIVE: No complaint. OBJECTIVE: GENERAL: Awake, alert, oriented. VITAL SIGNS: Temperature maximum 98.6, heart rate 71, respirations 18, blood pressure 87/55. Anothe r episode, blood pressure 90/49. Pulse oximetry 96 on room air. HEAD AND NECK: Within normal limits. HEART: Regular. LUNGS: Clear. CHEST WALL: Dressing over site of removal of Port-A-Cath was removed. There is no evidence of cellu litis or infection or abscess. Dressing was changed with Betadine soaked sponge and Tegaderm was ferny lied. ABDOMEN: Quite soft. No evidence of tenderness. No guarding, no rigidity, no rebound tenderness. EXTREMITIES: Lower extremities calf: No tenderness. No pitting edema. No cords. No Homans sign. Right elbow: There is an Angiocath in the antecubital vein that patient has been receiving medicati on from there. There is a little bit of swelling and edema over there and erythema and some tenderne ss on touching; therefore, the nurse is going to remove this one. This is considered to be some mild degree of thrombophlebitis, but I doubt that this can explain the jump to 31,000 WBC. LABORATORY DATA: WBC has jumped up tremendously today which was 2700 total yesterday, today is 31,30 0 with differential yesterday was 42% neutrophils and today is 77% and 16% bandemia. Hemoglobin is 9 .5, hematocrit 29; yesterday was 9.8 and 30.3. Chemistry: No chemistry has been done today. MICROBIOLOGY: No infection has been reported. No growth of anything has been reported today. HOSPITAL COURSE: On the other hand, the patient has been receiving the medication to increase the le ukocyte count, so that could be the reason for that. I discussed with the nurse, Bria, so that lisa is going to call and already has called the oncologist, Dr. Art and the team to see if they have to continue giving the medication for increasing leukocyte count or should stop it. Dictated By: MIREILLE CHAVEZ MD PS/NTS Conf#: [id number] DID#: [id number] CC: TRACY VARNER MD; MAICO MOULTON MD;*EndCC*
[2019-02-25 19:30] VITALS: BP 84/48; PULSE 78; RESP 18
[2019-02-26 01:31] VITALS: BP 93/54; PULSE 58; RESP 18
[2019-02-26 07:25] VITALS: BP 97/47; PULSE 53; RESP 20
[2019-02-26] MEDS: CEFEPIME 1GM/50 ML (PMX) 50 ML IVPB SCH (08:20)
[2019-02-26] MEDS: FAMOTIDINE 20 MG TAB PO SCH ×2 (08:20→20:37)
--- NOTE | 2019-02-26 09:04 | CONS ---
Assessment/Plan Assessment/Plan Hospital Course (Demo Recall) - possible infected portacath site s/p removal - chest wall culture site was negative. 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 Consultation Date/Type/Reason Admit Date/Time Feb 21, 2019 at 14:53 Initial Consult Date 02/22/19 Type of Consult ID Requesting Provider: GURU LAMB Date/Time of Note DATE: 02/26/19 TIME: 09:02 Exam/Review of Systems Exam Vitals Vital Signs Date Temp Pulse Resp B/P (MAP) Pulse Ox O2 O2 Flow FiO2 Time Delivery Rate 02/26/19 98.0 53 20 97/47 (64) 97 Room Air 07:25 Intake and Output 02/25/19 02/25/19 02/26/19 1515:00 23:00 07:00 IntakeIntake Total 790 ml 250 ml BalanceBalance 790 ml 250 ml Constitutional: alert, oriented, well developed Psych: no complaints, nl mood/affect Eyes: nl conjunctiva, EOMI, nl lids, nl sclera, PERRL Respiratory: clear to auscultation, normal air movement Gastrointestinal: soft, nl liver, spleen, non-tender 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: MORTGAGE COUNSELOR II-XII intact, nl mental status, nl speech, nl strength Results Result Diagram: 02/26/19 0423 02/26/19 0423 Results 24hrs Laboratory Tests Test 02/26/19 04:23 White Blood Count 14.8 #H Red Blood Count 3.10 L Hemoglobin 9.4 L Hematocrit 28.7 L Mean Corpuscular Volume 92.6 Mean Corpuscular Hemoglobin 30.3 Mean Corpuscular Hemoglobin Concent 32.8 Red Cell Distribution Width 14.7 H Platelet Count 171 Mean Platelet Volume 10.3 Immature Granulocytes % 0.500 H Neutrophils % Lymphocytes % Monocytes % Eosinophils % Basophils % Nucleated Red Blood Cells % 0.0 Immature Granulocytes # 0.070 H Neutrophils # Lymphocytes # Monocytes # Eosinophils # Basophils # Nucleated Red Blood Cells # Sodium Level 146 H Potassium Level 3.8 Chloride Level 113 H Carbon Dioxide Level 23 Anion Gap 10 Blood Urea Nitrogen 7 Creatinine 0.33 L Est Glomerular Filtrat Rate mL/min > 60 Glucose Level 84 Calcium Level 9.1 Medications Medication Current Medications Acetaminophen/ Hydrocodone Bitart ([place] (5/325)) 1 tab Q6H PRN PO MODERATE PAIN LEVEL 4-6 Last administered on 02/21/19at 06:34; Admin Dose 1 TAB; Start 02/20/19 at 20:00 Acetaminophen (Tylenol Tab) 650 mg Q6H PRN PO MILD PAIN(1-3)OR ELEVATED TEMP; Start 02/20/19 at 20:00 Ondansetron HCl (Zofran Inj) 4 mg Q6H PRN IV NAUSEA/VOMITING; Start 02/20/19 at 21:00 Docusate Sodium (Colace) 100 mg Q12H PRN PO .CONSTIPATION; Start 02/20/19 at 21:00 Zolpidem Tartrate (Ambien) 5 mg QHS PRN PO .INSOMNIA; Start 02/20/19 at 21:00 Famotidine (Pepcid) 20 mg Q12 PO Last administered on 02/26/19at 08:20; Admin Dose 20 MG; Start 02/20/19 at 21:00 Cefepime HCl 50 ml @ 100 mls/hr Q12 IVPB Last administered on 02/26/19 08:20; Admin Dose 100 MLS/HR; Start 02/22/19 at 10:00 Filgrastim (Nivestym) 300 mcg DAILY@1700 SC Last administered on 02/24/19at 16:34; Admin Dose 300 MCG; Start 02/24/19 at 17:00; Stop 02/27/19 at 16:59; Status Hold CON HERNANDEZ MD Feb 26, 2019 09:04
--- NOTE | 2019-02-26 12:35 | CONS ---
Assessment/Plan Assessment/Plan Hospital Course (Demo Recall) 58 yo with Her 2 + breast ca s/p chemo, now on adjuvant tx with herceptin and perjeta she is admitted for mediport infection she is on broad spectrum abx we are asked to see for neutropenia I suspect this is due to infection and medication/abx she is s/p GCSF 300mcg x 2 days and her WBC has recovered, GCSF stopped cont current abx transfuse if plt <10k or hgb <7 discussed with pt with cow tender will sign off now please call with questions Consultation Date/Type/Reason Admit Date/Time Feb 21, 2019 at 14:53 Initial Consult Date 02/22/19 Requesting Provider: GURU LAMB Date/Time of Note DATE: 02/26/19 TIME: 12:33 Exam/Review of Systems Exam Vitals Vital Signs Date Temp Pulse Resp B/P (MAP) Pulse Ox O2 O2 Flow FiO2 Time Delivery Rate 02/26/19 98.0 53 20 97/47 (64) 97 Room Air 07:25 Intake and Output 02/25/19 02/25/19 02/26/19 1515:00 23:00 07:00 IntakeIntake Total 790 ml 250 ml BalanceBalance 790 ml 250 ml Results Result Diagram: 02/26/19 0423 02/26/19 0423 Results 24hrs Laboratory Tests Test 02/26/19 04:23 White Blood Count 14.8 #H Red Blood Count 3.10 L Hemoglobin 9.4 L Hematocrit 28.7 L Mean Corpuscular Volume 92.6 Mean Corpuscular Hemoglobin 30.3 Mean Corpuscular Hemoglobin Concent 32.8 Red Cell Distribution Width 14.7 H Platelet Count 171 Mean Platelet Volume 10.3 Immature Granulocytes % 0.500 H Neutrophils % Segmented Neutrophils % (Manual) 82 H Band Neutrophils % (Manual) 8 H Lymphocytes % Lymphocytes % (Manual) 7 L Reactive Lymphocytes % (Manual) 2 H Monocytes % Eosinophils % Eosinophils % (Manual) 1 Basophils % Nucleated Red Blood Cells % 0.0 Immature Granulocytes # 0.070 H Neutrophils # Neutrophils # (Manual) 12.3 H Band Neutrophils # 1.1 H Lymphocytes (Manual) 1.0 Lymphocytes # Reactive Lymphocytes # 0.2 H Monocytes # Eosinophils # Basophils # Nucleated Red Blood Cells # Platelet Estimate NORMAL Sodium Level 146 H Potassium Level 3.8 Chloride Level 113 H Carbon Dioxide Level 23 Anion Gap 10 Blood Urea Nitrogen 7 Creatinine 0.33 L Est Glomerular Filtrat Rate mL/min > 60 Glucose Level 84 Calcium Level 9.1 Medications Medication Current Medications Acetaminophen/ Hydrocodone Bitart ([place] (5/325)) 1 tab Q6H PRN PO MODERATE PAIN LEVEL 4-6 Last administered on 02/21/19 06:34; Admin Dose 1 TAB; Start 02/20/19 at 20:00 Acetaminophen (Tylenol Tab) 650 mg Q6H PRN PO MILD PAIN(1-3)OR ELEVATED TEMP; Start 02/20/19 at 20:00 Ondansetron HCl (Zofran Inj) 4 mg Q6H PRN IV NAUSEA/VOMITING; Start 02/20/19 at 21:00 Docusate Sodium (Colace) 100 mg Q12H PRN PO .CONSTIPATION; Start 02/20/19 at 21:00 Zolpidem Tartrate (Ambien) 5 mg QHS PRN PO .INSOMNIA; Start 02/20/19 at 21:00 Famotidine (Pepcid) 20 mg Q12 PO Last administered on 02/26/19at 08:20; Admin Dose 20 MG; Start 02/20/19 at 21:00 Cefepime HCl 50 ml @ 100 mls/hr Q12 IVPB Last administered on 02/26/19at 08:20; Admin Dose 100 MLS/HR; Start 02/22/19 at 10:00 Filgrastim (Nivestym) 300 mcg DAILY@1700 SC Last administered on 02/24/19at 16:34; Admin Dose 300 MCG; Start 02/24/19 at 17:00; Stop 02/27/19 at 16:59; Status Hold MARIA ISABEL GUEVARA Feb 26, 2019 12:34
--- NOTE | 2019-02-26 14:04 | PN ---
DATE: 02/26/2019 SUBJECTIVE: No specific complaint. OBJECTIVE: GENERAL: Alert, awake, oriented. VITAL SIGNS: Temperature maximum today 98.6, heart rate 58, respiration 18, blood pressure 93/54, sa turation 100% on room air. HEART: Regular. LUNGS: Clear. SKIN: Dressing was changed. Wound is clean. Decision was made not to pack it anymore, just cover i t with Betadine soaked sponge and then with dry sponges and Tegaderm daily. LABORATORY DATA: WBC which had jumped to 31,300 yesterday, today has come down to 14,800 with 82% se gmented, platelet count is 171, hemoglobin 9.4, hematocrit 28.7. Chemistry: BUN, creatinine are nor mal. Sodium is slightly elevated 146. MICROBIOLOGY: No new microbiology report. The patient is on antibiotic of cefepime q.12 hours. ASSESSMENT AND PLAN: A 58-year-old female who has had a locally advanced cancer of the breast, recei thelma chemotherapy neoadjuvant and just has responded, but about a week ago, it does noticed that the s kin coverage of the Port-A-Cath has been disrupted and the port has been exposed; therefore, patient was admitted urgently and the Port-A-Cath was removed by radiologist in the radiology department and the wound was covered with Xeroform and later on with Betadine, sterile dressing and antibiotic, vanc omycin and cefepime was started by the patient empirically considering the exposed Port-A-Cath and th is has been continued, may need mostly because of the fact that the patient's leukocyte count was 140 0 only. Therefore, the patient was started on medication to boost up an increased leukocyte count an d it has been gradually increasing, but suddenly yesterday, they went up to 31,000, so decision was m marv to hold on the filgrastim and today, it is down to 14,000 with 82% neutrophils differential. The refore, the patient continues to get antibiotic and local care of the wound and decision for discharg e will be made by the oncologist/forest biometrics professor when they make sure that the leukocyte count is adequat e. Dictated By: MIREILLE CHAVEZ MD PS/NTS Conf#: [id number] DID#: [id number] CC: MAICO MOULTON MD; TRACY VARNER MD;*EndCC*
[2019-02-26 16:00] VITALS: BP 81/41; PULSE 72; RESP 20
[2019-02-26 16:39] VITALS: BP 84/48; PULSE 74; RESP 18
--- NOTE | 2019-02-26 16:39 | PN ---
Date/Time of Note Date/Time of Note DATE: 02/26/19 TIME: 16:37 Assessment/Plan VTE Prophylaxis Risk score (from [facility] [place]0 risk: 4 SCD applied (from [facility] [place]): Yes Pharmacological prophylaxis: NA/contraindicated Pharm contraindication: surgical contra Lines/Catheters IV Catheter Type (from [place]): [place] Urinary Cath still in place: No Assessment/Plan Hospital Course Pending arrangement for home health for daily wound care prior to discharge. Plan of care discussed with patient and patient's son came over the phone. Assessment/Plan -Possible Port-A-Cath infection and exposure, status post removal by interventional radiology. Status post antibiotics. Dr. Andujar is following in infection disease consultation. Follow-up on cultures. -Neutropenia, resolved. S/p GCSF. Dr. Serrano is following in hematology consultation. -Locally advanced left breast cancer. Status post chemotherapy. Dr. Jack is following in general surgery consultation. Further recommendations based on clinical course. Plan of care discussed with Dr. Jovel. Result Diagram: 02/26/19 0423 02/26/19 0423 Results 24hrs Laboratory Tests Test 02/26/19 04:23 White Blood Count 14.8 #H Red Blood Count 3.10 L Hemoglobin 9.4 L Hematocrit 28.7 L Mean Corpuscular Volume 92.6 Mean Corpuscular Hemoglobin 30.3 Mean Corpuscular Hemoglobin Concent 32.8 Red Cell Distribution Width 14.7 H Platelet Count 171 Mean Platelet Volume 10.3 Immature Granulocytes % 0.500 H Neutrophils % Segmented Neutrophils % (Manual) 82 H Band Neutrophils % (Manual) 8 H Lymphocytes % Lymphocytes % (Manual) 7 L Reactive Lymphocytes % (Manual) 2 H Monocytes % Eosinophils % Eosinophils % (Manual) 1 Basophils % Nucleated Red Blood Cells % 0.0 Immature Granulocytes # 0.070 H Neutrophils # Neutrophils # (Manual) 12.3 H Band Neutrophils # 1.1 H Lymphocytes (Manual) 1.0 Lymphocytes # Reactive Lymphocytes # 0.2 H Monocytes # Eosinophils # Basophils # Nucleated Red Blood Cells # Platelet Estimate NORMAL Sodium Level 146 H Potassium Level 3.8 Chloride Level 113 H Carbon Dioxide Level 23 Anion Gap 10 Blood Urea Nitrogen 7 Creatinine 0.33 L Est Glomerular Filtrat Rate mL/min > 60 Glucose Level 84 Calcium Level 9.1 Exam/Review of Systems Exam Vitals Vital Signs Date Temp Pulse Resp B/P (MAP) Pulse Ox O2 O2 Flow FiO2 Time Delivery Rate 02/26/19 98.9 72 20 81/41 (54) 96 Room Air 16:00 Intake and Output 02/25/19 02/25/19 02/26/19 1515:00 23:00 07:00 IntakeIntake Total 790 ml 250 ml BalanceBalance 790 ml 250 ml Exam Constitutional: alert, oriented Respiratory: clear to auscultation Cardiovascular: nl pulses Gastrointestinal: soft, non-tender Musculoskeletal: nl extremities to inspection 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: nl mental status Skin: other (Right upper chest surgical dressing) Results Results 24hrs Laboratory Tests Test 02/26/19 04:23 White Blood Count 14.8 #H Red Blood Count 3.10 L Hemoglobin 9.4 L Hematocrit 28.7 L Mean Corpuscular Volume 92.6 Mean Corpuscular Hemoglobin 30.3 Mean Corpuscular Hemoglobin Concent 32.8 Red Cell Distribution Width 14.7 H Platelet Count 171 Mean Platelet Volume 10.3 Immature Granulocytes % 0.500 H Neutrophils % Segmented Neutrophils % (Manual) 82 H Band Neutrophils % (Manual) 8 H Lymphocytes % Lymphocytes % (Manual) 7 L Reactive Lymphocytes % (Manual) 2 H Monocytes % Eosinophils % Eosinophils % (Manual) 1 Basophils % Nucleated Red Blood Cells % 0.0 Immature Granulocytes # 0.070 H Neutrophils # Neutrophils # (Manual) 12.3 H Band Neutrophils # 1.1 H Lymphocytes (Manual) 1.0 Lymphocytes # Reactive Lymphocytes # 0.2 H Monocytes # Eosinophils # Basophils # Nucleated Red Blood Cells # Platelet Estimate NORMAL Sodium Level 146 H Potassium Level 3.8 Chloride Level 113 H Carbon Dioxide Level 23 Anion Gap 10 Blood Urea Nitrogen 7 Creatinine 0.33 L Est Glomerular Filtrat Rate mL/min > 60 Glucose Level 84 Calcium Level 9.1 Medications Medication Current Medications Acetaminophen/ Hydrocodone Bitart ([place] (5/325)) 1 tab Q6H PRN PO MODERATE PAIN LEVEL 4-6 Last administered on 02/21/19at 06:34; Admin Dose 1 TAB; Start 02/20/19 at 20:00 Acetaminophen (Tylenol Tab) 650 mg Q6H PRN PO MILD PAIN(1-3)OR ELEVATED TEMP; Start 02/20/19 at 20:00 Ondansetron HCl (Zofran Inj) 4 mg Q6H PRN IV NAUSEA/VOMITING; Start 02/20/19 at 21:00 Docusate Sodium (Colace) 100 mg Q12H PRN PO .CONSTIPATION; Start 02/20/19 at 21:00 Zolpidem Tartrate (Ambien) 5 mg QHS PRN PO .INSOMNIA; Start 02/20/19 at 21:00 Famotidine (Pepcid) 20 mg Q12 PO Last administered on 02/26/19at 08:20; Admin Dose 20 MG; Start 02/20/19 at 21:00 Cefepime HCl 50 ml @ 100 mls/hr Q12 IVPB Last administered on 02/26/19at 08:20; Admin Dose 100 MLS/HR; Start 02/22/19 at 10:00 Filgrastim (Nivestym) 300 mcg DAILY@1700 SC Last administered on 02/24/19at 16:34; Admin Dose 300 MCG; Start 02/24/19 at 17:00; Stop 02/27/19 at 16:59; Status Hold CAM GARCIA Feb 26, 2019 16:39
[2019-02-27 00:52] VITALS: BP 91/48; PULSE 76; RESP 18
[2019-02-27 02:00] VITALS: BP 88/42; PULSE 55; RESP 20
[2019-02-27 07:55] VITALS: BP 92/55; PULSE 66; RESP 18
[2019-02-27] MEDS: FAMOTIDINE 20 MG TAB PO SCH (08:06)
--- NOTE | 2019-02-27 13:45 | PN ---
DATE: 02/27/2019 SUBJECTIVE: No complaint, feels good. OBJECTIVE: GENERAL: Awake, alert, oriented. Vital signs are stable. VITAL SIGNS: Temperature 98.2, heart rate 66, respiration 18, blood pressure 92/55, saturation 98% on room air. SKIN: Dressing has been changed. The wound is clean. Granulation tissue gradually is forming. LABORATORY DATA: Today, WBC actually dropped further down and is almost normal as 5400 with differential 73% segmented, hemoglobin 9.3, hematocrit 28.4. Chemistry was not done today. ASSESSMENT AND PLAN: The patient with dehisced wound over the Port-A-Cath which requires urgent removal of the Port-A-Cath on the right upper chest and the wound was left open and daily dressing was done with wet to dry. Antibiotic also empirically was given by infectious disease. The patient stayed afebrile. Leukocyte count on admission was very low at 1400, leukopenia due to previous chemotherapy; therefore, the patient was started on medication to increase the leukocyte count which actually jump his WBC to 31,000, so they had to hold on that, so gradually after 48 hours the WBC dropped back to normal and now today, the patient has been discharged from surgical standpoint and also from other standpoint, they have discharged the patient to go home and home health nurse has been made to go home daily and change dressing as per instruction and the patient to call Dr. Moulton' office today and make an arrangement for an appointment for next week to see Dr. Moulton on Sunday or on Sunday. Dictated By: MIREILLE CHAVEZ MD PS/NTS Conf#: [id number] DID#: [id number] CC: MAICO MOULTON MD; TRACY VARNER MD;*EndCC* MTDD
--- NOTE | 2019-02-28 00:01 | DS ---
Date/Time of Note Date/Time of Note DATE: 02/27/19 TIME: 23:58 Discharge Summary Admission/Discharge Info Admit Date/Time Feb 21, 2019 at 14:53 Discharge Date/Time Feb 27, 2019 at 13:02 Patient Condition: Stable Hx of Present Illness The patient is a 58-year-old Faro[place] female who was diagnosed with locally advanced left breast cancer in August 2018. Patient underwent Port-A-Cath placement on the right side in October 2018. Patient underwent chemotherapy with good response. Patient was following with Dr. Tmo in oncology consultation. Patient was seen in Dr. Jack's office and noted Port-A-Cath exposure above skin surface. Patient was brought to the hospital today and underwent removal of right chest Port-A-Cath by radiology. Patient is seen is seen in medical surgical floor. Patient is awake, alert, complains of minor right surgical site pain, denies any nausea vomiting, denies any chest pain denies shortness of breath. Hospital Course Patient discharged home with home health services for daily dressing changes. Plan of care and discharge instructions given patient and patient's son Juliana over the phone. -Possible Port-A-Cath infection and exposure, status post removal by interventional radiology. Status post antibiotics. Dr. Andujar is following in infection disease consultation. Follow-up on cultures. -Neutropenia, resolved. S/p GCSF. Dr. Serrano is following in hematology consultation. -Locally advanced left breast cancer. Status post chemotherapy. Dr. Jack is following in general surgery consultation. Plan of care discussed with Dr. Jovel. Home Meds No Active Prescriptions or Reported Meds Follow-up Plan Follow-up with Dr. Jack in 1 week. Primary Care Provider Not On Staff Doctor Time spent on discharge: > 30 minutes Pending Labs Laboratory Tests Test 02/27/19 04:27 White Blood Count 5.4 10^3/ul (4.8-10.8) Red Blood Count 3.05 10^6/ul (4.20-5.40) Hemoglobin 9.3 g/dl (12.0-16.0) Hematocrit 28.4 % (37.0-47.0) Mean Corpuscular Volume 93.1 fl (82.0-101.0) Mean Corpuscular Hemoglobin 30.5 pg (29.0-33.0) Mean Corpuscular Hemoglobin Concent 32.7 g/dl (32.0-37.0) Red Cell Distribution Width 14.6 % (11.5-14.5) Platelet Count 187 10^3/UL (140-415) Mean Platelet Volume 9.8 fl (7.4-10.4) Immature Granulocytes % 0.400 % (0.001-0.429) Neutrophils % 73.6 % (39.0-77.0) Lymphocytes % 19.3 % (15.0-51.0) Monocytes % 5.2 % (0.0-11.0) Eosinophils % 1.1 % (0.0-7.0) Basophils % 0.4 % (0.0-2.0) Nucleated Red Blood Cells % 0.0 /100WBC (0.0-0.0) Immature Granulocytes # 0.020 10^3/ul (0.0-0.031) Neutrophils # 4.0 10^3/ul (1.6-7.5) Lymphocytes # 1.0 10^3/ul (0.8-2.9) Monocytes # 0.3 10^3/ul (0.3-0.9) Eosinophils # 0.1 10^3/ul (0.0-0.5) Basophils # 0.0 10^3/ul (0.0-0.1) Nucleated Red Blood Cells # 0.0 10^3/ul (0.0-0.0) CAM GARCAI Feb 28, 2019 00:01
== END 2019-02-27 13:02 | disposition home health service (06) | DRG 314 ==
LOC: MS1 13:13 → OBSVTOIN 02-21 14:53
PROVIDERS: ATTEND Internal Medicine
PROC: 0JPT0WZ Removal of Totally Implantable Vascular Access Device from Trunk Subcutaneous Tissue and Fascia, Open Approach (ICD-10-PCS; principal; 2019-02-20)
DX: T82.7XXA Infection and inflammatory reaction due to other cardiac and vascular devices, implants and grafts, initial encounter (principal); D61.810 Antineoplastic chemotherapy induced pancytopenia; T81.31XA Disruption of external operation (surgical) wound, not elsewhere classified, initial encounter; C50.912 Malignant neoplasm of unspecified site of left female breast
CPT/HCPCS: 76937; 80048; 80202; 83605; 83735; 84145; 85025; 85610; 86703; 87070; 87081; 88300; G0378; J0690; J0692; J1644; J3370; J7030; J7040; Q5110; Q9967

== ENCOUNTER 2019-03-13 07:35 | Observation (INO) | payer BC ==
[~2019-03-13] VITALS: Ht 160 cm; Wt 59.1 kg
[2019-03-13] VITALS (17 sets, daily range): BP systolic 93–115; BP diastolic 53–63; PULSE 64–88; RESP 14–18; Ht 160 cm; Wt 59.1 kg
[2019-03-13] MEDS ORDERED: EPHEDrine 25 MG/5 ML SYG ONE (11:30)
[2019-03-13] MEDS ORDERED: LIDOCAINE 2% (SDV) 5 ML INJ ONE (11:35)
[2019-03-13] MEDS ORDERED: FENTAnyl 50 MCG/ML VIAL ONE ×3 (11:35→14:31)
[2019-03-13] MEDS ORDERED: PROPOFOL 20 ML ONE (11:35)
[2019-03-13] MEDS ORDERED: CEFAZOLIN 1 GM INJ ONE (11:35)
[2019-03-13] MEDS ORDERED: METOCLOPRAMIDE 10 MG INJ ONE (11:37)
[2019-03-13] MEDS ORDERED: ONDANSETRON 4 MG INJ ONE (11:37)
[2019-03-13] MEDS ORDERED: DEXAMETHASONE 4 MG/ML 5 ML INJ ONE (11:37)
--- NOTE | 2019-03-13 11:41 | PREAC ---
Date/Time of Note Date/Time of Note DATE: 03/13/19 TIME: 11:39 Anesthesia Eval and Record Evaluation Time Pre-Procedure Interview DATE: 03/13/19 TIME: 11:39 Age 58 Sex female NPO: 8 hrs Preoperative diagnosis left breast cancer Planned procedure left needle directed partial mastectomy and sentinel lymph node biopsy Past Medical History Past Medical History: Includes Heme: Other (LEFT BREAST CANCER, on chemotherapy. Currently neutropenic.) Infection(s): Other (Hx portacath infection s/p removal of port ) Surgery & Anesthesia Issues No known issue Meds Anticoagulation: No Beta Yunier within 24 hr: No Reason Beta Yunier not given: Pt. not on B-Yunier No Active Prescriptions or Reported Meds Meds reviewed: Yes Allergies Coded Allergies: carboplatin (Verified Allergy, Unknown, 10/18/18) docetaxel (Verified Allergy, Unknown, 10/18/18) pertuzumab (Verified Allergy, Unknown, 10/18/18) trastuzumab (Verified Allergy, Unknown, 10/18/18) Allergies Reviewed: Yes Labs/Studies Labs Reviewed: Reviewed by anesthesiologist Result Diagram: 03/13/19 0802 03/13/19 0802 Laboratory Tests 03/13/19 08:02 test: N/A Studies: ECG (NSR), CXR, 2D Echo (2019: EF 55-60%, normal LV function) Pre-procedure Exam Airway: Adequate mouth opening, Adequate thyromental dist Mallampati: Mallampati II Teeth: Normal Lung: Normal Heart: Normal ASA Physical Status ASA physical status: 3 Emergency: None Planned Anesthetic General/MAC: LMA Planned Pain Management Parenteral pain med, Local by surgeon Pre-operative Attestations Prior to commencing anesthesia and surgery, the patient was re-evaluated, there was verification of: *The patient's identity *The results of appropriate recent lab work and preoperative vital signs *The above evaluation not changing prior to induction *Anesthetic plan, risk benefits, alternative and complications discussed with patient/family; questions answered; patient/family understands, accepts and wishes to proceed. ROGER GRIJALVA Mar 13, 2019 11:41
[2019-03-13] MEDS ORDERED: FAMOTIDINE 20 MG INJ ONE (11:53)
[2019-03-13] MEDS ORDERED: ISOSULFAN BLUE 1% 5 ML INJ SC ONE (12:37)
[2019-03-13] MEDS ORDERED: SCOPOLAMINE 1.5 MG PATCH ONE (13:20)
[2019-03-13] MEDS: SOD CHLORIDE 0.9% 1,000 ML IV SCH (14:00)
[2019-03-13] MEDS ORDERED: ONDANSETRON 4 MG INJ IV PRN ×2 (14:00→14:30)
[2019-03-13] MEDS ORDERED: OXYCODONE/ACETAMINOPHEN (5/325) TAB PO PRN ×2 (14:00)
[2019-03-13] MEDS ORDERED: HYDROmorphONE 1 MG/5 ML IV SYRINGE IV PRN ×3 (14:00)
[2019-03-13] MEDS ORDERED: MEPERIDINE 25 MG INJ IV PRN (14:00)
--- NOTE | 2019-03-13 14:10 | SIPON ---
Date/Time of Note Date/Time of Note DATE: 03/13/19 TIME: 14:09 Operative Report Preoperative Diagnosis Locally advanced left breast cancer Postoperative Diagnosis Same Operation/Procedure Performed Needle directed left partial mastectomy and axillary dissection utilizing s entinel lymph node technique Surgeon see signature line nurse practitioner physician assistant Dr Orourke Anesthesia: general Estimated blood loss: 10 - 50 ml's Transfusion Required none Specimen Left partial mastectomy specimen and sentinel lymph node with additional axillary nodes Grafts/Implants none Complications none MAICO MOULTON MD Mar 13, 2019 14:10
[2019-03-13] MEDS ORDERED: morphine 2 MG INJ IV PRN (14:30)
[2019-03-13] MEDS ORDERED: ACETAMINOPHEN 1000MG/100ML IV 100 ML IVPB PRN (14:30)
--- NOTE | 2019-03-13 14:50 | PAC ---
Date/Time of Note Date/Time of Note DATE: 03/13/19 TIME: 14:49 Post-Anesthesia Notes Post-Anesthesia Note Last documented vital signs HR 78 BP 94/58 Temp 97.4 Spo2 98% RR 14 Vital Signs Date Temp Pulse Resp B/P (MAP) Pulse Ox O2 O2 Flow FiO2 Time Delivery Rate 03/13/19 97.9 64 16 103/53 99 Room Air 11:38 (70) Activity: WNL Respiratory function: WNL Cardiovascular function: WNL Mental status: Baseline Pain reasonably controlled: Yes Hydration appropriate: Yes Nausea/Vomiting absent: Yes ROGER GRIJALVA Mar 13, 2019 14:50
--- NOTE | 2019-03-13 15:23 | OPR ---
DATE OF OPERATION: 03/13/2019 PREOPERATIVE DIAGNOSIS: Locally advanced left breast cancer. POSTOPERATIVE DIAGNOSIS: Locally advanced left breast cancer. OPERATION PERFORMED: Left needle-directed partial mastectomy and axillary dissection utilizing senti regina lymph node technique. ANESTHESIA: General. ANESTHESIOLOGIST: Nurse museum service scheduler, Marlo Wilson. SURGEON: Jorge Jack MD MARKETING ASSISTANT [employer] DIVISION: Jose Chavez MD INDICATIONS FOR PROCEDURE: The patient is a 58-year-old female who presented with a large, approxima tely 5 cm mass in her left breast. Workup including biopsy revealed an invasive cancer. Her tumor w as found to be HER2 positive. She therefore received neoadjuvant chemotherapy and had a very good re sponse based on post-treatment mammogram and ultrasound. Decision was made that she was a candidate for breast conservation surgery. She was consented and scheduled for surgery. DESCRIPTION OF PROCEDURE: On the morning of surgery, the patient presented to [facility] where she underwent localization of the previously placed clip performed by attend [facility] radiologist, Dr. Alex Espinoza. Subsequently, she was brought to the operating theater, placed under general anesthesia. The left breast and axillary region was prepped and draped in the usual s terile fashion. Approximately 3 to 4 mL of 1% Lymphazurin blue dye was then injected in the region o f the previous tumor. The breast was gently massaged for 12 minutes. Subsequently, a 3 to 4 cm inci tracy was made in the left axillary hairline. Subcutaneous tissue was dissected with cautery down thr ough the clavipectoral fascia. A dye-stained lymphatic was traced to an obvious sentinel lymph node. This lymph node and several others in this area were then resected using LigaSure device. The spec imen was sent for intraoperative frozen section analysis performed by Dr. Ben Osborne of pathology. The sentinel node was negative for evidence of metastatic disease. Therefore, no further lymph node s were taken. The axillary specimen was then sent for permanent pathologic analysis. The wound was irrigated. Minimal bleeding was controlled with cautery, and the skin was then reapproximated with a 4-0 Vicryl suture in subcuticular fashion. Attention was then directed to performing the partial mastectomy. A curvilinear incision was made fr om approximately the 7 o'clock location to the 11 o'clock location approximately 3 cm from the nipple areolar border. This was in the region of the previously placed localization wire. Subcutaneous ti ssue was dissected with cautery. Skin edges were then elevated with skin hooks and wide circumferent ial dissection of the tissue associated with the wire then took place down to the pectoralis major fa scia. Specimen was oriented, transected, and sent for radiographic confirmation of capture. Capture was confirmed. Specimen was then sent for permanent pathologic analysis. The wound was irrigated. Minimal bleeding was controlled with cautery. The skin was then reapproximated with deep dermal lay er of 4-0 Vicryl sutures in interrupted fashion, followed by final skin approximation with 5-0 PDS sanders tures in subcuticular fashion. Dermabond was then applied to both incisions. Patient tolerated the procedure well. The estimated blood loss was approximately 40 mL. There were no complications and t he patient was transported in stable condition to the recovery room where circumferential compression dressing was applied. Dictated By: JORGE JACK MD TL/SMITA Conf#: [id number] DID#: [id number] CC: JOSE CHAVEZ MD;*EndCC*
--- NOTE | 2019-03-13 16:14 | HP ---
Date/Time of Note Date/Time of Note DATE: 03/13/19 TIME: 15:58 Assessment/Plan VTE Prophylaxis SCD applied (from Nsg): Yes Pharmacological prophylaxis: NA/contraindicated Pharm contraindication: surgical contra Lines/Catheters IV Catheter Type (from Nrsg): Peripheral IV Assessment/Plan Assessment/Plan -Locally advanced left breast cancer. S/p left needle-directed partial mastectomy and axillary dissection utilizing sentinel lymph node technique by Dr Jack. Will administer IV fluids and postoperative antibiotic. Continue [place] and morphine as needed for pain and Zofran as needed for nausea. Further recommendations based on clinical course. Plan of care discussed with Dr. Jovel. Result Diagram: 03/13/19 0802 03/13/19 0802 Results 24hrs Laboratory Tests Test 03/13/19 08:02 White Blood Count 2.7 L Red Blood Count 3.33 L Hemoglobin 10.4 L Hematocrit 31.8 L Mean Corpuscular Volume 95.5 Mean Corpuscular Hemoglobin 31.2 Mean Corpuscular Hemoglobin Concent 32.7 Red Cell Distribution Width 14.6 H Platelet Count 193 Mean Platelet Volume 9.4 Immature Granulocytes % 0.000 L Neutrophils % 47.0 Lymphocytes % 36.1 Monocytes % 9.0 Eosinophils % 6.8 Basophils % 1.1 Nucleated Red Blood Cells % 0.0 Immature Granulocytes # 0.000 Neutrophils # 1.3 L Lymphocytes # 1.0 Monocytes # 0.2 L Eosinophils # 0.2 Basophils # 0.0 Nucleated Red Blood Cells # 0.0 CBC Results Faxed/Phoned Prothrombin Time 12.8 Prothrombin Time Ratio 1.0 INR International Normalized Ratio 0.95 Activated Partial Thromboplast Time 32.4 Sodium Level 144 Potassium Level 4.4 Chloride Level 107 Carbon Dioxide Level 31 Anion Gap 6 Blood Urea Nitrogen 10 Creatinine 0.40 L Est Glomerular Filtrat Rate mL/min > 60 Glucose Level 83 Calcium Level 9.5 Total Bilirubin 0.6 Direct Bilirubin 0.00 Indirect Bilirubin 0.6 Aspartate Amino Transf (AST/SGOT) 35 Alanine Aminotransferase (ALT/SGPT) 27 Alkaline Phosphatase 62 Total Protein 7.0 Albumin 4.0 Globulin 3.00 Albumin/Globulin Ratio 1.33 HPI/ROS Admit Date/Time Admit Date/Time Mar 13, 2019 at 14:43 Hx of Present Illness The patient is a 58-year-old [place] female known to me from previous admission. Patient was diagnosed with locally advanced left breast cancer, tumor was found to be HER-2 positive and therefore patient underwent neoadjuvant chemotherapy with good response. Patient was recently admitted for Port-A-Cath exposure and Port-A-Cath was removed by radiology. It was decided that the patient will undergo breast conservation surgery. Patient was brought to the hospital and underwent a left partial mastectomy with axillary node dissection. Postoperatively patient experiencing moderate pain and patient will be admitted for further evaluation and management. ROS 12 point review of system is negative except for what mentioned in HPI PMH/Family/Social Past Medical History Medications Current Medications Hydromorphone HCl (Dilaudid) 0.2 mg PACU PRN IV MILD PAIN 1-3; Start 03/13/19 at 14:00; Stop 03/13/19 at 18:00 Hydromorphone HCl (Dilaudid) 0.4 mg PACU PRN IV MOD PAIN 4-6; Start 03/13/19 at 14:00; Stop 03/13/19 at 18:00 Hydromorphone HCl (Dilaudid) 0.6 mg PACU PRN IV SEVERE PAIN 7-10; Start 03/13/19 at 14:00; Stop 03/13/19 at 18:00 Oxycodone/ Acetaminophen (Percocet (5/ 325)) 1 tab PACU ORDER PRN PO .PAIN 1-5; Start 03/13/19 at 14:00; Stop 03/13/19 at 18:00 Oxycodone/ Acetaminophen (Percocet (5/ 325)) 2 tab PACU ORDER PRN PO .PAIN 6-10; Start 03/13/19 at 14:00; Stop 03/13/19 at 18:00 Ondansetron HCl (Zofran Inj) 4 mg PACU ORDER PRN IV NAUSEA/VOMITING; Start 03/13/19 at 14:00; Stop 03/13/19 at 18:00 Meperidine HCl (Demerol) 25 mg PACU ORDER PRN IV .RIGORS; Start 03/13/19 at 14:00; Stop 03/13/19 at 18:00 Sodium Chloride 1,000 ml @ 50 mls/hr Q20H IV ; Start 03/13/19 at 14:00 Ondansetron HCl (Zofran Inj) 4 mg Q6H PRN IV NAUSEA AND/OR VOMITING; Start 03/13/19 at 14:30 Potassium Chloride/Dextrose/ Sod Cl 1,000 ml @ 125 mls/hr Q8H IV ; Start 03/13/19 at 14:10 Morphine Sulfate (morphine) 2 mg Q1H PRN IV PAIN; Start 03/13/19 at 14:30 Acetaminophen 100 ml @ 400 mls/hr Q6H PRN IVPB PAIN; Start 03/13/19 at 14:30; Stop 03/14/19 at 14:29 Coded Allergies: carboplatin (Verified Allergy, Unknown, 10/18/18) docetaxel (Verified Allergy, Unknown, 10/18/18) pertuzumab (Verified Allergy, Unknown, 10/18/18) trastuzumab (Verified Allergy, Unknown, 10/18/18) Past Surgical History Past Surgical Hx: other (Status post Port-A-Cath placement and subsequent recent Port-A-Cath removal) Family History Significant Family History: no pertinent family hx Social History Alcohol Use: none Smoking Status: Former smoker Drug Use: none Exam/Review of Systems Vital Signs Vitals Vital Signs Date Temp Pulse Resp B/P (MAP) Pulse Ox O2 O2 Flow FiO2 Time Delivery Rate 03/13/19 97.9 64 16 103/53 99 Room Air 11:38 (70) Exam Constitutional: alert, oriented Head: normocephalic Neck: supple Respiratory: clear to auscultation Cardiovascular: regular rate and rhythm Gastrointestinal: soft, non-tender Musculoskeletal: nl extremities to inspection Extremities: normal pulses 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: nl mental status Skin: nl turgor (Status post left partial mastectomy) CAM GARCIA Mar 13, 2019 16:08
[2019-03-13] MEDS: D5W-0.45 NACL + KCL 20 MEQ 1,000 ML IV SCH ×2 (16:24→22:10)
[2019-03-13] MEDS ORDERED: HYDROCODONE/APAP (5/325) TAB PO PRN (16:30)
--- NOTE | 2019-03-13 17:04 | RADRPT ---
Vent Rate: 61 bpm RR Interval: 980 msec AR Interval: 162 msec QRS Duration: 80 msec QT Interval: 430 msec QTC Interval: 434 msec P-R-T [place]: 30 - 63 - 53 degrees Sinus rhythm...normal P axis, V-rate 50- 99 Electronically Signed By: Jaguar Gutierrez
[2019-03-14] MEDS: D5W-0.45 NACL + KCL 20 MEQ 1,000 ML IV SCH (01:13)
[2019-03-14] MEDS ORDERED: SOD CHLORIDE 0.9% 500 ML IV ONE ×4 (02:00→05:30)
[2019-03-14 02:30] VITALS: BP 81/45; PULSE 74; RESP 18
[2019-03-14 03:00] VITALS: BP 90/47; PULSE 66; RESP 18
[2019-03-14 03:30] VITALS: BP 86/53; PULSE 56; RESP 18
[2019-03-14 04:52] VITALS: BP 84/50; PULSE 63; RESP 18
[2019-03-14] MEDS: SOD CHLORIDE 0.9% 1,000 ML IV SCH ×2 (04:52→08:30)
[2019-03-14 09:37] VITALS: BP_SYST 132; BP_SYST 99; BP_DIAS 56; BP_DIAS 91; PULSE 102; PULSE 66; RESP 16
--- NOTE | 2019-03-14 13:16 | DS ---
Date/Time of Note Date/Time of Note DATE: 03/14/19 TIME: 13:16 Discharge Summary Admission/Discharge Info Admit Date/Time Mar 13, 2019 at 14:43 Discharge Date/Time Discharge Diagnosis -Locally advanced left breast cancer. - S/p left needle-directed partial mastectomy and axillary dissection utilizing sentinel lymph node technique by Dr Jack. discussed with Dr. Jovel. Patient Condition: Stable Home Meds No Active Prescriptions or Reported Meds Primary Care Provider Not On Staff Doctor Pending Labs Laboratory Tests Test 03/14/19 02:21 03/14/19 05:01 White Blood Count 4.3 10^3/ul (4.8-10.8) 4.7 10^3/ul (4.8-10.8) Red Blood Count 2.96 10^6/ul (4.20-5.40) 2.88 10^6/ul (4.20-5.40) Hemoglobin 9.1 g/dl (12.0-16.0) 9.0 g/dl (12.0-16.0) Hematocrit 27.4 % (37.0-47.0) 26.9 % (37.0-47.0) Mean Corpuscular Volume 92.6 fl (82.0-101.0) 93.4 fl (82.0-101.0) Mean Corpuscular 30.7 pg (29.0-33.0) 31.3 pg (29.0-33.0) Hemoglobin Mean Corpuscular 33.2 g/dl (32.0-37.0) 33.5 g/dl (32.0-37.0) Hemoglobin Concent Red Cell Distribution 14.6 % (11.5-14.5) 14.5 % (11.5-14.5) Width Platelet Count 145 10^3/UL (140-415) 138 10^3/UL (140-415) Mean Platelet Volume 9.7 fl (7.4-10.4) 9.5 fl (7.4-10.4) Immature Granulocytes % 0.200 % (0.001-0.429) 0.400 % (0.001-0.429) Neutrophils % 85.9 % (39.0-77.0) 86.5 % (39.0-77.0) Lymphocytes % 12.1 % (15.0-51.0) 10.3 % (15.0-51.0) Monocytes % 1.6 % (0.0-11.0) 2.8 % (0.0-11.0) Eosinophils % 0.0 % (0.0-7.0) 0.0 % (0.0-7.0) Basophils % 0.2 % (0.0-2.0) 0.0 % (0.0-2.0) Nucleated Red Blood Cells 0.0 /100WBC (0.0-0.0) 0.0 /100WBC (0.0-0.0) % Immature Granulocytes # 0.010 10^3/ul (0.0-0.031) 0.020 10^3/ul (0.0-0.031) Neutrophils # 3.7 10^3/ul (1.6-7.5) 4.0 10^3/ul (1.6-7.5) Lymphocytes # 0.5 10^3/ul (0.8-2.9) 0.5 10^3/ul (0.8-2.9) Monocytes # 0.1 10^3/ul (0.3-0.9) 0.1 10^3/ul (0.3-0.9) Eosinophils # 0.0 10^3/ul (0.0-0.5) 0.0 10^3/ul (0.0-0.5) Basophils # 0.0 10^3/ul (0.0-0.1) 0.0 10^3/ul (0.0-0.1) Nucleated Red Blood Cells 0.0 10^3/ul (0.0-0.0) 0.0 10^3/ul (0.0-0.0) # Sodium Level 143 mmol/L (135-144) Potassium Level 4.4 mmol/L (3.5-5.1) Chloride Level 113 mmol/L (97-110) Carbon Dioxide Level 25 mmol/L (21-31) Anion Gap 5 (5-13) Blood Urea Nitrogen 8 mg/dl (7-20) Creatinine 0.32 mg/dl (0.44-1.00) Est Glomerular Filtrat > 60 mL/min (>60) Rate mL/min Glucose Level 106 mg/dl (70-220) Calcium Level 8.6 mg/dl (8.4-10.2) GRUU LAMB Mar 14, 2019 13:16
--- NOTE | 2019-03-14 13:19 | PDOCDIS ---
Discharge Instructions DIAGNOSIS Discharge Diagnosis -Locally advanced left breast cancer. - S/p left needle-directed partial mastectomy and axillary dissection utilizing sentinel lymph node technique by Dr Jack. discussed with Dr. Jovel. CONDITION [id number] Patient Condition: [id number] Stable HOME CARE INSTRUCTIONS: [id number] Diet Instructions: [id number] ACTIVITY: [id number] Activity Restrictions: [id number] Slowly Increase Activity Rest between Activity Avoid heavy lifting Do not operate Machinery Do not operate Power Tool Avoid Heavy Housework FOLLOW UP/APPOINTMENTS Follow-up Plan FU with Primary MD x 1 week FU with surgeon MD as recommended Call 911 or go to the nearest hospital if symptoms get worse. Patient verbalized understanding dc instructions GURU LAMB Mar 14, 2019 13:19
[2019-03-14 15:51] VITALS: BP 109/52; PULSE 60; RESP 16
== END 2019-03-14 19:04 | disposition home or self-care (01) ==
LOC: EDBD → SDS 07:35 → MERGE 12:30 → SDS 14:12 → REC 14:43 → PP2 16:10
PROVIDERS: ADMIT Surgery Surgical Oncology; ATTEND Surgery Surgical Oncology
DX: D05.12 Intraductal carcinoma in situ of left breast (principal)
CPT/HCPCS: 19301; 38525; 38900; 71045; 80048; 80053; 85025; 85610; 85730; 88307; 88331; 93005; G0378; J0690; J1100; J2270; J2405; J2765; J3010; J3480; J7030; J7040; Q9968